=== PATIENT | male | born 1955 | race Caucasian/White ===

== ENCOUNTER 2019-12-03 10:49 | Outpatient (CLI) | payer OTHER, SELFPAY ==
--- NOTE | ~2019-12-03 | XR_ITS ---
EXAMINATION: XR hand BI arthritis min 3V DATE: 12/03/2019 11:06 INDICATION: Bilateral primary osteoarthritis of first carpometacarpal joints. TECHNIQUE: 4 views of right hand and 4 views of left hand on a total of 7 radiographs were obtained. COMPARISON: None. FINDINGS: RIGHT HAND: Bone alignment is normal. No fracture. There is mild osteoarthritis of triscaphe joint, m oderate osteoarthritis of first carpometacarpal joint, and mild osteoarthritis of first and second me tacarpophalangeal joints and most of the interphalangeal joints. LEFT HAND: Bone alignment is normal. No fracture. There is moderate osteoarthritis of first carpometa carpal joint and mild osteoarthritis of second metacarpophalangeal joint and second, third, and fifth distal interphalangeal joints. IMPRESSION: 1. Polyarticular osteoarthritis. Reviewed, dictated and finalized at location A.
== END 2019-12-03 10:50 | disposition home or self-care (01) ==
PROVIDERS: PCP Internal Medicine; Visit Provider Internal Medicine
DX: M18.0 Bilateral primary osteoarthritis of first carpometacarpal joints (principal); M19.041 Primary osteoarthritis, right hand; M19.042 Primary osteoarthritis, left hand
CPT/HCPCS: 73130

== ENCOUNTER → 2020-10-23 09:24 | Outpatient (CLI) | payer OTHER, SELFPAY ==
[2020-10-23 11:49] LABS: Influenza Control Positive
[2020-10-24 21:01] LABS: SARS-CoV-2 RNA PCR Negative
== END ==
PROVIDERS: PCP Internal Medicine; Visit Provider Nurse Practitioner
DX: J32.9 Chronic sinusitis, unspecified (principal); Z20.822 Contact with and (suspected) exposure to COVID-19
CPT/HCPCS: 87804; C9803; U0003; U0005

== ENCOUNTER 2023-05-19 17:10 | Emergency (ER) | payer OTHER, SELFPAY ==
[2023-05-19 17:30] VITALS: BP 155/93; PULSE 92; RESP 18; TEMP 36.8; O2SAT 94
--- NOTE | 2023-05-19 17:47 | ED.URI ---
HPI - URI/Sore Throat General Chief Complaint: Upper Respiratory Infection Stated Complaint: Chest Congestion Source: patient and RN notes reviewed History of Present Illness HPI Narrative: 68 yo M presents to urgent care with complaints of cough and congestion x 8 days. Pt states his O2 SAT 1 week ago was in the 80's. Pt denies any fevers, chills, chest pain, SOB, N/V/D, ear pain, or sore throat. Pt called and his MD and was told to come here to be seen. Related Data Home Medications Medication Instructions Recorded Confirmed cholecalciferol (vitamin D3) 125 5,000 unit PO DAILY 05/17/19 05/19/23 mcg (5,000 unit) capsule multivitamin,[id number] 1 tablet PO DAILY 11/29/19 05/19/23 (Complete Multivitamin tablet) Allergies Allergy/AdvReac Type Severity Reaction Status Date / Time No Known Allergies Allergy Verified 05/19/23 17:50 Review of Systems Review of Systems: Pertinent positives and pertinent negatives per HPI. [facility] Past Medical History Medical History Depression Elevated PSA Elevated PSA measurement Encounter for monitoring testosterone replacement therapy Erectile dysfunction Essential hypertension Hypogonadism in male Morbid obesity due to excess calories Morbid obesity due to excess calories Obesity Osteoarthritis of thumbs, bilateral Surgical History Surgical History History of arthroscopy of knee 01/15/2021 Family History Family History Father Heart disease CAD Diabetes mellitus Sibling Acute myocardial infarction Pacemaker Social History Social History Smoking status: Never smoker Alcohol intake: current Alcohol use details: Pt drinks socially. Lack of Transportation: No Lack of Food: Never True Current Housing: I Have Housing Concerned About Future Housing: No Difficulty Paying Gas/Electric Bills: No Difficulty Paying for Meds: No Currently Unemployed: No Education: Trade/Vocational Certificate Difficulty w/ Childcare or Family Care: No Comments At the time of my signature, I reviewed and agree with the nursing past medical, surgical, social, and family history. There is no relevant family history pertinent to the patient complaint. Exam Narrative: GENERAL: This is a well-nourished, well-developed patient, in no apparent distress. HEAD: normocephalic, atraumatic. EYES: Sclera clear/white. Vision is grossly intact. EARS: External ears normal, auditory canals clear and without drainage, TMs normal without perforation. Hearing grossly intact. NOSE: External nose normal with no obvious nasal discharge. + congestion THROAT: Mucous membranes moist, posterior pharynx clear. NECK: Neck supple, non-tender without lymphadenopathy, masses or thyromegaly. CARDIOVASCULAR: Regular rate and rhythm without murmurs, gallops, or rubs. RESPIRATORY: Clear to auscultation. Breath sounds equal bilaterally. No wheezes, rales, or rhonchi. SKIN: warm, intact with no suspicious lesions or rash, good texture and turgor. NEURO: awake, alert, and oriented to person, place and time. There were no obvious focal neurologic abnormalities. Course Course Level of Care: Express Care Visit Vital Signs Vital signs: Vital Signs Temperature 98.3 F 05/19/23 17:30 Pulse Rate 92 05/19/23 17:30 Respiratory Rate 18 05/19/23 17:30 Blood Pressure 155/93 H 05/19/23 17:30 Pulse Oximetry 94 05/19/23 17:30 Oxygen Delivery Room Air 05/19/23 17:30 Temperature 98.3 F 05/19/23 17:30 Pulse Rate 92 05/19/23 17:30 Respiratory Rate 18 05/19/23 17:30 Blood Pressure 155/93 H 05/19/23 17:30 Pulse Oximetry 94 05/19/23 17:30 Oxygen Delivery Room Air 05/19/23 17:30 Reviewed MDM - URI/Sore Throat MDM Narrative
== END 2023-05-19 18:08 | disposition home or self-care (01) ==
PROVIDERS: Emergency Provider Nurse Practitioner Family; PCP Internal Medicine
DX: J32.9 Chronic sinusitis, unspecified (principal); I10 Essential (primary) hypertension; E66.01 Morbid (severe) obesity due to excess calories; Z68.41 Body mass index [BMI] 40.0-44.9, adult
CPT/HCPCS: 99213; G0463

== ENCOUNTER 2023-11-15 08:21 | Outpatient (CLI) | payer OTHER, SELFPAY ==
--- NOTE | ~2023-11-15 | CT_ITS ---
EXAMINATION: CT sinus wo con DATE: 11/15/2023 08:36 INDICATION: Chronic sinusitis TECHNIQUE: Computed tomography (CT) of the paranasal sinuses was performed without intravenous contra st. Coronal reconstructions were obtained. Iterative reconstruction technique was employed. The dose- length product was 410.46 mGy-cm. COMPARISON: None FINDINGS: Minimal mucosal thickening at the floor of the left maxillary sinus. Remainder of the paranasal sinus es are clear. The bilateral ostiomeatal units are patent. Nasal septum is midline. Changes of right i ntraocular lens replacement. Orbits are otherwise normal. Status post left mastoidectomy. Right masto id air cells and middle ear cavity are normal. There are several dental restorations. There are also periapical lucencies at normally a few of the teeth that the maxilla. IMPRESSION: 1. Minimal mucosal thickening at the floor of the left maxillary sinus. Paranasal sinuses are otherwi se unremarkable. 2. Status post left mastoidectomy and right intraocular lens replacement. Reviewed, dictated and finalized at location B. IMPRESSION: 1. Minimal mucosal thickening at the floor of the left maxillary sinus. Paranas al sinuses are otherwise unremarkable. 2. Status post left mastoidectomy and right intraocular lens replacement.
== END 2023-11-15 08:22 ==
PROVIDERS: PCP Nurse Practitioner; Visit Provider Otolaryngology
DX: J32.9 Chronic sinusitis, unspecified (principal)
CPT/HCPCS: 70486

== ENCOUNTER 2024-01-04 14:13 | Outpatient (CLI) | payer OTHER, SELFPAY ==
--- NOTE | 2024-01-04 14:27 | ECG_ITS ---
Test Date: 2024-01-04 14:39:08 Measurements Intervals [place] Rate: 80 P: 55 WA: 149 QRS: 56 QRSD: 101 T: 59 QT: 344 QTc: 398 Interpretive Statements SINUS RHYTHM NORMAL ECG No previous ECG available for comparison Electronically Signed On 01-04-2024 15:05:11 CDT by Mario Lawton D.O.
[2024-01-04 15:35] LABS: Anion Gap 9 mmol/L (4-12); Blood Urea Nitrogen 21 mg/dL (9-20); Calcium 8.9 mg/dL (8.4-10.2); Carbon Dioxide 26 mmol/L (22-30); Chloride 104 mmol/L (98-107); Estimated Glomerular Filt Rate > 60; Glucose 89 mg/dL (65-110); Potassium 4.1 mmol/L (3.4-5.0); Sodium 139 mmol/L (137-145)
== END 2024-01-04 14:14 | disposition home or self-care (01) ==
LOC: ANHCARD 14:15
PROVIDERS: PCP Internal Medicine; Visit Provider Anesthesiology
DX: Z01.818 Encounter for other preprocedural examination (principal); I10 Essential (primary) hypertension; Z51.81 Encounter for therapeutic drug level monitoring
CPT/HCPCS: 36415; 80048; 93005

== ENCOUNTER 2024-01-27 15:42 | Emergency (ER) | payer OTHER, SELFPAY ==
[2024-01-27 15:45] VITALS: BP 130/77; PULSE 83; RESP 18; TEMP 36.6; O2SAT 97
--- NOTE | 2024-01-27 16:18 | ED.URI ---
HPI - URI/Sore Throat General Chief Complaint: Upper Respiratory Infection Stated Complaint: poss strep throat Time Seen by Provider: 01/27/24 16:19 Source: patient, RN notes reviewed and old records reviewed Mode of arrival: ambulatory Limitations: no limitations History of Present Illness HPI Narrative: 68-year-old presents to the [facility] with concerns for strep throat. Patient has a history of chronic sinusitis. Symptoms started a week to 10 days ago. Has been taking Mucinex. States he uses both Astelin and Flonase daily at request of his ENT doctor. He recently had sinus surgery canceled. Has an appointment with Dr. Brown on the 19 of February for a new ENT Patient states that when he lays down at night all of his sinuses strain into his throat and causes him to cough. Denies fevers. Reports negative COVID test at home a couple of days ago Onset (ago): day(s) (7-10) Treatments prior to arrival: cold medicine Related Data Home Medications Medication Instructions Recorded Confirmed cholecalciferol (vitamin D3) 125 5,000 unit PO DAILY 05/17/19 01/27/24 mcg (5,000 unit) capsule multivitamin,[id number] 1 tablet PO DAILY 11/29/19 01/27/24 (Complete Multivitamin tablet) finasteride 5 mg tablet (Proscar) 5 mg PO DAILY 09/01/23 01/27/24 tamsulosin 0.4 mg capsule (Flomax) 0.4 mg PO BID 09/01/23 01/27/24 tadalafil 10 mg tablet (Cialis) 10 mg PO DAILY 11/02/23 01/27/24 ibuprofen 200 mg capsule 800 mg PO Q6H PRN Pain 01/03/24 01/27/24 oxybutynin chloride 10 mg 10 mg PO DAILY 01/03/24 01/27/24 tablet,extended release 24 hr Allergies Allergy/AdvReac Type Severity Reaction Status Date / Time No Known Allergies Allergy Verified 01/03/24 16:01 Review of Systems Review of Systems: All systems reviewed & are unremarkable except as noted in HPI and below Constitutional: Constitutional: Reports no additional constitutional complaints Eyes: Eyes: Reports no additional eye complaints ENT: Reports as per HPI Cardiovascular: Cardiovascular: Reports no additional cardiovascular complaints, Denies chest pain and Denies dyspnea Respiratory: Respiratory: Reports no additional respiratory complaints, Denies chest congestion, Denies cough and Denies dyspnea Gastrointestinal: Gastrointestinal: Reports no additional gastrointestinal complaints, Denies abdominal pain, Denies nausea and Denies vomiting Musculoskeletal: Musculoskeletal: Reports no additional musculoskeletal complaints Integumentary/Breasts: Skin/Breast: Reports system reviewed and no additional complaints, except as docu Neurologic: Reports system reviewed and no additional complaints, except as documented Psychiatric: Psychiatric: Reports no additional psychiatric complaints Allergic/Immunologic: Allergic/Immunologic: Reports no additional allergic/immunologic complaints PMFSH Past Medical History Medical History Depression Elevated PSA Elevated PSA measurement Encounter for monitoring testosterone replacement therapy Erectile dysfunction Essential hypertension Hypogonadism in male Morbid obesity due to excess calories Morbid obesity due to excess calories Obesity Osteoarthritis of thumbs, bilateral Surgical History Surgical History History of arthroscopy of knee 01/15/2021 Family History Family History Father Heart disease CAD Diabetes mellitus Sibling Acute myocardial infarction Pacemaker Social History Social History Smoking status: Never smoker Alcohol intake: current Drinks per week: 1 Alcohol use details: Pt drinks socially. Lack of Transportation: No Lack of Food: Never True Current Housing: I Have Housing Concerned About Future Housing: No Difficulty Paying Gas/Electric Bills:
[2024-01-27 16:22] LABS: EDSTREPNEGPOS1 Presumptive Negative
== END 2024-01-27 16:33 | disposition home or self-care (01) ==
PROVIDERS: Emergency Provider Nurse Practitioner; PCP Internal Medicine
DX: J32.9 Chronic sinusitis, unspecified (principal); I10 Essential (primary) hypertension; E66.01 Morbid (severe) obesity due to excess calories; Z68.41 Body mass index [BMI] 40.0-44.9, adult
CPT/HCPCS: 87081; 87880; 99213; G0463

== ENCOUNTER 2024-03-23 09:16 | Emergency (ER) | payer OTHER, SELFPAY ==
--- NOTE | ~2024-03-23 | XR_ITS ---
EXAMINATION: XR foot LT min 3V DATE: 03/23/2024 09:44 INDICATION: Left foot pain. TECHNIQUE: 4 views of left foot were obtained. COMPARISON: None. FINDINGS: Alignment is normal. No fracture. There is mild osteoarthritis of first metatarsophalangeal joint and some of the interphalangeal joints. There is mild to moderate midfoot osteoarthritis. Ther e are enthesophytes at the posterior and plantar aspects of calcaneal tuberosity. IMPRESSION: 1. Polyarticular osteoarthritis. Reviewed, dictated and finalized at location A.
[2024-03-23 09:33] VITALS: BP 152/78; PULSE 84; RESP 16; TEMP 37.2; O2SAT 98
--- NOTE | 2024-03-23 09:36 | ED.LOWEXIN ---
HPI - Extremity Injury (Lower) General Chief Complaint: Extremity Injury, Lower Stated Complaint: Left Foot Injury Time Seen by Provider: 03/23/24 10:01 Source: patient and RN notes reviewed Mode of arrival: ambulatory Limitations: no limitations History of Present Illness HPI Narrative: 69-year-old male presents with concern for left foot pain. Reports 1 week ago he slipped off a truck at work and hit the ball of his foot hard on the pavement. Reports pain reports he had some bruising at the base of his digits which is resolving. Reports he has taken ibuprofen once a day without much relief. Reports wearing his shoes helps his pain. MD complaint: foot injury Related Data Home Medications Medication Instructions Recorded Confirmed cholecalciferol (vitamin D3) 125 5,000 unit PO DAILY 05/17/19 03/02/24 mcg (5,000 unit) capsule multivitamin,wi-uzvr-hysotmwi 1 tablet PO DAILY 11/29/19 03/02/24 (Complete Multivitamin tablet) finasteride 5 mg tablet (Proscar) 5 mg PO DAILY 09/01/23 03/02/24 tamsulosin 0.4 mg capsule (Flomax) 0.4 mg PO BID 09/01/23 03/02/24 tadalafil 10 mg tablet (Cialis) 10 mg PO DAILY 11/02/23 03/02/24 ibuprofen 200 mg capsule 800 mg PO Q6H PRN Pain 01/03/24 03/02/24 oxybutynin chloride 10 mg 10 mg PO DAILY 01/03/24 03/02/24 tablet,extended release 24 hr Allergies Allergy/AdvReac Type Severity Reaction Status Date / Time No Known Allergies Allergy Verified 03/02/24 08:09 Review of Systems Review of Systems: CONSTITUTIONAL: Denies malaise, chills, sweats, or fever. SKIN: Denies rash or itching, open skin, laceration, abrasion, redness, warmth, swelling. MUSCULOSKELETAL: Reports left foot pain NEUROLOGIC: Denies numbness, weakness All systems reviewed & are unremarkable except as noted in HPI and below PMFSH Past Medical History Medical History Depression Elevated PSA Elevated PSA measurement Encounter for monitoring testosterone replacement therapy Erectile dysfunction Essential hypertension Hypogonadism in male Morbid obesity due to excess calories Morbid obesity due to excess calories Obesity Osteoarthritis of thumbs, bilateral Surgical History Surgical History History of arthroscopy of knee 01/15/2021 Family History Family History Father Heart disease CAD Diabetes mellitus Sibling Acute myocardial infarction Pacemaker Social History Social History Smoking status: Never smoker Alcohol intake: current Drinks per week: 1 Alcohol use details: Pt drinks socially. Lack of Transportation: No Lack of Food: Never True Current Housing: I Have Housing Concerned About Future Housing: No Difficulty Paying Gas/Electric Bills: No Difficulty Paying for Meds: No Currently Unemployed: No Education: Trade/Vocational Certificate Difficulty w/ Childcare or Family Care: No Living arrangements: with family Additional living arrangements comments: S.O. Spiritual care concerns: No Comments At time of signature, agree with nursing past medical, surgical, social and family history. There is no relevant family history pertinent to the presenting complaint Exam Narrative: GENERAL: Well-appearing, well-nourished, and in no acute distress. HEAD: Normocephalic, atraumatic. EYES: PERRLA, conjunctivae clear NECK: Supple. CHEST: Speaks in full sentences. No respiratory distress. HEART: Regular rate and rhythm. Normal and equal peripheral pulses. EXTREMITIES: Left foot, digits have grossly normal strength and sensation, grossly normal range of motion. No edema or ecchymosis. Normal sensation with sensitivity to light touch and pain. No open wounds, no skin tenting, no devitalized tissue or atrophy, no trophic changes, no obvious deformity, al
== END 2024-03-23 10:15 | disposition home or self-care (01) ==
PROVIDERS: Emergency Provider Nurse Practitioner; PCP Internal Medicine
DX: M79.672 Pain in left foot (principal); I10 Essential (primary) hypertension; E66.01 Morbid (severe) obesity due to excess calories; M19.042 Primary osteoarthritis, left hand; M19.041 Primary osteoarthritis, right hand
CPT/HCPCS: 73630; 99213; G0463

== ENCOUNTER 2024-04-02 14:52 | Outpatient (CLI) | payer OTHER, SELFPAY ==
--- NOTE | ~2024-04-02 | XR_ITS ---
Left foot Technique: AP, oblique, and lateral views were obtained. Clinical History: Pain COMPARISON: 03/23/2024 Findings: No acute fracture or dislocation is seen. Osseous alignment is anatomic. There are mild deg enerative changes at the interphalangeal joints. Plantar calcaneal spur present. Soft tissues are unr emarkable. Impression: Degenerative changes, as above. Reviewed, dictated and finalized at location M. Impression: Degenerative changes, as above.
== END 2024-04-02 14:53 | disposition home or self-care (01) ==
LOC: ANHBWCIMG 14:53
PROVIDERS: PCP Internal Medicine; Visit Provider Orthopaedic Surgery
DX: M19.072 Primary osteoarthritis, left ankle and foot (principal)
CPT/HCPCS: 73630

== ENCOUNTER 2024-08-03 14:13 | Outpatient (CLI) | payer OTHER, SELFPAY ==
--- NOTE | ~2024-08-03 | MR_ITS ---
EXAMINATION: MR knee RT wo con DATE: 08/03/2024 14:49 INDICATION: Right knee pain. TECHNIQUE: Magnetic resonance imaging (MRI) of the right knee was performed without intravenous contr ast. Sequences included axial PD-weighted FS FSE, coronal PD-weighted FSE and PD-weighted FS FSE, sag ittal PD-weighted FSE, and sagittal T2-weighted FS FSE. COMPARISON: None. FINDINGS: Medial compartment: There is a complex tear involving body and posterior root of medial meniscus. There is shallow partia l-thickness cartilage loss of tibial condyle. There is an osteochondral lesion of femoral condyle inv olving the central articular surface with unstable in situ fragment with fluid at its deep margin and moderate subchondral edema-like marrow signal intensity. There is deep partial-thickness cartilage l oss of femoral condyle involving the lateral articular surface. There are tiny osteophytes. Lateral compartment: Lateral meniscus is normal. Lateral compartment cartilage is normal. There are tiny osteophytes. Patellofemoral compartment: There is deep partial-thickness cartilage loss of patellar medial and lateral facets. There is cartil age surface irregularity of trochlea. Osteophytes are noted. Ligaments and tendons: Anterior and posterior cruciate ligaments demonstrate thickening and increased signal intensity. Ther e are changes of prior sprains of medial collateral ligament and fibular collateral ligament characte rized by thickening and increased signal intensity proximally. There is mild patellar tendinopathy. Fluid: There is a small knee joint effusion. There is a 15 mm ganglion cyst posterior to femoral metaphysis. There is moderate prepatellar and superficial infrapatellar bursitis. IMPRESSION: 1. Unstable osteochondral lesion of medial femoral condyle. 2. Moderate chondrosis of medial and patellofemoral compartments. 3. Tear of medial meniscus. 4. Small knee joint effusion. 5. Thickening and increased signal involving anterior and posterior cruciate ligaments, consistent wi th mucoid degeneration versus partial tears. Reviewed, dictated and finalized at location A. C2 TACTICAL ANALYSIS TECHNICIAN IMPRESSION: 1. Unstable osteochondral lesion of medial femoral condyle. 2. Moderate chondrosis of medial and patellofemoral compartments. 3. Tear of medial meniscus. 4. Small knee joint effusion. 5. Thickening and increased signal involving anterior and posterior cruciate li gaments, consistent with mucoid degeneration versus partial tears.
== END 2024-08-03 14:14 | disposition home or self-care (01) ==
LOC: GOSHIMG 14:14
PROVIDERS: PCP Internal Medicine; Visit Provider Orthopaedic Surgery
DX: M93.261 Osteochondritis dissecans, right knee (principal); M22.41 Chondromalacia patellae, right knee; M25.461 Effusion, right knee; S83.241A Other tear of medial meniscus, current injury, right knee, initial encounter; S83.501A Sprain of unspecified cruciate ligament of right knee, initial encounter; X58.XXXA Exposure to other specified factors, initial encounter
CPT/HCPCS: 73721

== ENCOUNTER 2024-08-13 13:03 | Outpatient (CLI) | payer OTHER, SELFPAY ==
--- NOTE | ~2024-08-13 | XR_ITS ---
Right Knee Technique: AP, lateral, and sunrise views were obtained. Clinical History: Pain Findings: No fracture or dislocation is seen. Osseous alignment is anatomic. Joint spaces are preserv ed, with minimal degenerative spurring present. Soft tissues are unremarkable. No joint effusion is s een. Impression: Minimal degenerative spurring. Reviewed, dictated and finalized at location . DING ENERGY CONSULTANT Impression: Minimal degenerative spurring.
== END 2024-08-13 13:04 | disposition home or self-care (01) ==
PROVIDERS: PCP Internal Medicine; Visit Provider Orthopaedic Surgery
DX: M25.561 Pain in right knee (principal)
CPT/HCPCS: 73564

== ENCOUNTER 2025-04-30 06:43 | Outpatient (CLI) | payer MEDICARE, SELFPAY ==
--- NOTE | ~2025-04-30 | CT_ITS ---
EXAMINATION: CT sinus wo con DATE: 04/30/2025 07:10 INDICATION: Acute sinusitis, unspecified TECHNIQUE: Computed tomography (CT) of the paranasal sinuses was performed without intravenous contrast. The dose-length product was 286.08 mGy-cm. COMPARISON: 11/15/2023 FINDINGS: Paranasal sinuses are clear. Right mastoid air cells are clear. Partial opacification of the left mastoid air cells. Status post left partial mastoidectomy and right intraocular lens replacement. Bilateral ostiomeatal complexes are patent. Stable metallic density extending to the temporal bone. Correlate clinically. IMPRESSION: 1. Partial opacification of the left mastoid air cells. 2. Status post left partial mastoidectomy. 3. The paranasal sinuses are clear. Reviewed, dictated and finalized at location Q.
--- OUTSIDE RECORDS SUMMARY | 2025-04-30 06:52 | XMS_ITS | Encounter Summary ---
Author Organization [facility] Address [address] [place] [address] Phone Care Team Providers Care Barbering Teacher Name Role Phone Robert Escobar DO Primary Care Provider Encounter Details Date Type Department Care Team (Late st Contact Info) Description 04/18/2025 Results Follow-Up [place] [facility] ([facility]) - [facility] [place] [facility] [address] [facility] 11th [place] [address] [place] [address] Annamarie Golden MD [address] [facility] [address] [place] [address] URINALYSIS, COMPLETE W/REFLEX TO CULTURE, Microscopic Examination Social History Tobacco Use Types Packs/Day Years Used Date Smoking Tobacco: Never Smokeless Tobacco: Never AUDIT-C Answer Date Recorded Q1: How often do you have a drink containing alc ohol? 2-4 times a month 03/04/2021 Q2: How many drinks containi ng alcohol do you have on a typical day when you are drinking? 1 or 2 03/04/2021 Q3: How often do you have si x or more drinks on one occasion? 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
--- OUTSIDE RECORDS SUMMARY | 2025-04-30 06:53 | XMS_ITS | Clinical Summary ---
Author Organization [facility] Address [address] [place] [id number] Care Team Providers Care Nursing Clerk Name Role Phone Unavailable Primary Care Provider Unavailabl e Social History Tobacco Use Types Packs/Day Years Used Date Smoking Tobacco: Never Assessed Sex and Gender Information Value Date Recorded Sex Assigned at Not on file Legal Sex Male 10:13 AM CDT Gender Identity Not on file Sexual Orientation Not on file Plan of Treatment Health Maintenance Due Date Last Done Comments Colorectal Cancer Screening Colonoscopy (10 Years) 1957 Hepatitis C 1975 DTaP, Tdap and Td Vaccines ( 1 - Tdap) 1976 Pneumococcal Vaccine: 50+ Ye ars (1 of 1 - PCV) 2007 Zoster Vaccines (1 of 2) 2007 COVID-19 Vaccine ( - 2024-2 6 season) 2025 Influenza Adult (#1) 2025 RSV Immunization or 60+ Years (1 - 1-dose 75+ series) 2032 Hepatitis A Vaccines Aged Out No long er eligible based on patient's age to complete this topic Meningococcal B Vaccine Aged Out No l onger eligible based on patient's age to complete this topic Meningococcal Vaccine Aged Out No babs jose eligible based on patient's age to complete this topic RSV Immunizations Under 20 Months Aged Out No longer eligible based on patient's age to complete this topic Insurance [facility]
--- OUTSIDE RECORDS SUMMARY | 2025-04-30 06:53 | XMS_ITS | Data Portability ---
Author Organization [facility] Address [address] [facility] [address] [place] [address] Care Team Providers Care College Sports Assistant Name Role Phone CHAITANYA GUSTAFSON Primary Care Provider WILL CANSECO Referring Provider Assessment No assessment recorded. Plan of Treatment Reminders Order Date Submit Date Provider Last Modified By Organization Details Last Modified Time Details Appointments None record ed. Lab None record ed. Referral None record ed. Procedures None record ed. Surgeries None record ed. Imaging None record ed. Medication Orders None record ed. Patient TargetsNo targets recorded. Patient InstructionsNo instructions recorded. Reason for Referral None Reported. Procedures Surgical History Date Name Laterality Status Provider Name and Address Organization Details Recorded Time 07/01/2017 Sleep Study completed Will Pearce [facility] 07/03/20 17 12:07:36 Imaging Results None recorded. Procedure Notes None recorded. Medical Equipment None Reported. Medications Name Sig Start Date Stop Date Status Note LastModified by Organization Details LastModified Time prednisone 10 mg tablet active Not Available Not Available Not Available cetirizine 10 mg tablet active Not Available Not Available Not Available ofloxacin 0.3 % eye drops active Not Available Not Available No t Available citalopram 10 mg tablet active Not Available Not Available Not Available clarithromycin 500 mg tablet active Not Available Not Availabl e Not Available prednisone 20 mg tablet active Not Available Not Available Not Available triamterene 37.5 mg-hydrochloroth iazide 25 mg capsule active Not Available Not Available Not Available amitriptyline 25 mg tablet active Not Available Not Available No t Available clarithromycin ER 500 mg tablet,extended release 24 hr active Not Available Not Availabl e Not Available promethazine 25 mg tablet active Not Available Not Available No t Available fluticasone propionate 50 mcg/actuation nasal spray,suspension active Not Available Not Avail able Not Available diazepam 5 mg tablet active Not Available Not Available Not Available amoxicillin 875 mg-potassium clavulanate 125 mg tablet active Not Available Not Available No t Available Vitals Date Recorded Body height Body mass index (BMI) Body weight Provider Name and Address Organization Details Last Updated DateTime 07/01/2017 187.96 cm 40.4 kg/m2 913053.[address] [facility] [place] 07/01/2017 16:15:42 Social History None recorded. Functional Status None recorded. Mental Status None recorded. Family History Nothing Reported. Medical History No medical history recorded. Past Encounters Encounter ID Performer Location Encounter Start Date Encounter Closed Date Diagnosis/Indication Diagnosis SNOMED-CT Code Diagnosis ICD10 Code Diagnosis IMO Codes Diagnosis Note [id number] [facility], [facility] (32) [address] [facility] [address] [place] [address] 07/01/2017 15:27:01 07/03/2017 12:02:13 Obstructive sleep apnea of adult 7848223189 103 G47.33 Health Concerns Section Related Observation LastModified by Organization Detai ls LastModified Time None Recorded Concern Status LastModified by Organization Details LastModified Time None Recorded Advance Directives Directive None Recorded Payers Insurance Date Sequence Insurance Name Policy Number Policy Garcia Covered Member ID Garcia Member ID Guarantor Name 07/08/2017 1 [facility] ([facility]) Aleksey Clark [id number] Aleksey Clark Notes Date Note Type Note Provider Name and Address Organization Details Recorded Time 7 text/html HST SetupReported by PatientEquipment InstructionsFor hst set up, patient reportsdemonstrated to patient how to set up home sleep test device. the patient was able to return demonstration with out difficulty.andthe patient is returning the device the following morning..ROS as noted in the HPI Gerard Wood MD [facility] [id number] [address] [facility] [address], [place], [address], [facility] [place] 07/03/2017 13:55:11
--- OUTSIDE RECORDS SUMMARY | 2025-04-30 06:54 | XMS_ITS | Clinical Summary ---
Author Organization [facility] Address [address] [place] [address] Care Team Providers Care Waste Salvager Name Role Phone [facility], External Provider Primary Care Provider U navailable Allergies No known active allergies Medications diazePAM (VALIUM) 5 mg tablet Take 5 mg by mouth every 8 hours as needed for Anxiety. Active meclizine (ANTIVERT) 25 mg tablet Take 25 mg by mouth 3 times daily as needed for Dizziness. Active amitriptyline (ELAVIL) 25 mg tablet Take 25 mg by mouth daily at bedtime. Active cetirizine (ZyrTEC) 10 mg tablet Take 5 mg by mouth daily . Active citalopram (CeleXA) 10 mg tablet Take 10 mg by mouth daily. Active promethazine (PHENERGAN) 25 mg tablet Take 25 mg by mouth every 6 hours as needed for Nausea/Emesis. Active fluticasone (XHANCE) 93 mcg/actuation Aerosol Breath Activated Administer in each nostril 1 SPRAY BID . Active multivitamin (DAILY-GALDINO) tablet Take 1 Tablet by mouth daily. Active calcium carbonate (TUMS ORAL) Take by mouth TAKES 2 TABS PRN . Active sertraline HCl (SERTRALINE ORAL) Take by mouth. Activ e amlodipine besylate (AMLODIPINE ORAL) Take by mouth. Activ e HYDROCHLOROTHI AZIDE ORAL Take by mouth. Acti ve losartan potassium (LOSARTAN ORAL) Take by mouth. Activ e TESTOSTERONE CYPIONATE IM Inject by intramuscular injection every 7 days. Active finasteride (PROSCAR) 5 mg tablet Take 5 mg by mouth daily. Active oxyBUTYnin (DITROPAN XL) 15 mg Extended Release 24 hour tablet Take 15 mg by mouth daily. Active tadalafil (CIALIS) 5 mg tablet Take 5 mg by mouth 1 time daily as needed for Erectile Dysfunction. Active tamsulosin (FLOMAX) 0.4 mg capsule Take 0.4 mg by mouth daily. Active cholecalcifero l, vitamin D3, (VITAMIN D3 ORAL) Take by mouth. Activ e rosuvastatin calcium (ROSUVASTATIN ORAL) Take by mouth. Activ e Active Problems No known active problems Encounters Date Type Department Care Team Description 03/19/2025 External Device Data ST[facility] ABSTRACTION Provider, Abstract from Last 3 Months Social History Tobacco Use Types Packs/Day Years Used Date Smoking Tobacco: Never Smokeless Tobacco: Never Alcohol Use Standard Drinks/Week Comments Yes 0 (1 standard drink = 0.6 oz pur e alcohol) socially Food Insecurity Answer Date Recorded Patient needs follow up regardin 11/03/2024 Transportation Needs Answer Date Record ed Patient needs follow up regardin 11/03/2024 Housing Stability Answer Date Recorded Social/Environmental Concerns No concerns Utility Needs Answer Date Recorded Patient needs follow up regardin 11/03/2024 Sex and Gender Information Value Date Recorded Sex Assigned at Not on file Legal Sex Male 9:13 AM CDT Gender Identity Not on file Sexual Orientation Not on file Last Filed Vital Signs Vital Sign Reading Time Taken Comments Blood Pressure 156/92 05/09/2018 1:20 PM SQUEEZER OPERATOR Pulse 75 05/09/2018 1:20 PM SQUEEZER OPERATOR Temperature 36.1 C (97 F) 05/09/2018 1:20 PM SQUEEZER OPERATOR Respiratory Rate 16 05/09/2018 1:20 PM SQUEEZER OPERATOR Oxygen Saturation 94% 05/09/2018 1:20 PM SQUEEZER OPERATOR Inhaled Oxygen Concentration - - Weight 153.3 kg (338 lb) 09/26/2024 4:18 PM CDT Height 188 cm (6' 2) 09/26/2024 4:18 PM CDT Body Mass Index 43.4 09/26/2024 4:18 PM CDT Plan of Treatment Health Maintenance Due Date Last Done Comments Pre-Diabetes and Diabetes Screening 1955 DTAP/TDAP/TD VACCINES (1 - Tdap) 1976 COLORECTAL SCREENING 2002 Colorectal Cancer Screening 2002 FIT-DNA Q 3 years 2002 FIT/FOBT Q 1 year 2002 Flex Sig/CT Colonography Q 5 years 2002 PNEUMOCOCCAL VACCINE 50+ YEARS (1 of 1 - PCV) 03/15/20 07 RSV VACCINE (60+ or ) (1 - Risk 50-74 years 1-dose series) 2007 ZOSTER VACCINE (1 of 2) 2007 INFLUENZA VACCINE (#1) 2025 Medical Devices Implanted Type Area Cleat Thrower Device Identifier Shelf Expiration Date Model / Serial / Lot Imp Ponto Bhx 4mm Abtmnt-14mm [id number] - [id number] Implanted:Qty : 1 on 05/09/2018 by Moreno Brown MD at [facility] Ear Left: Ear OTICON FARSHAD 07/22/2022 [id number] / / [id number] Description:requisition # [id number] Hemostatic Gelfoam [facility] [id number] - Csc - [id number] Implanted:Qty : 1 on 05/07/2016 by Moreno Brown MD at [facility] Hemostatic Left: Ear PFIZER- PHARM [id number] 08/31/2018 [id number] / / [id number] Hemostatic Gelfoam [facility] [id number] - Csc - [id number] Implanted:Qty : 1 on 12/27/2016 by Moreno Brown MD at [facility] Hemostatic Left: Ear PFIZER- PHARM [id number] 07/03/2017 [id number] / / [id number] Processor Ponto 3 Superpower Implanted:Qty : 1 on 05/09/2018 by Moreno Brown MD at [facility] Integral Left: Ear OTICON FARSHAD / [id number] / Description:REQUISITION # [id number] Right Eye Cataract Excision With Iol Silicone Sheeting Implanted:Qty : 1 on 05/07/2016 by Moreno Brown MD at [facility] Left: Ear INVOTEC INT 12/02/2019 [id number] / / [id number] Description:Medical Grade Cu stom Cut Silicone Sheeting Explanted Type Area Cleat Thrower Device Identifier Shelf Expiration Date Model / Serial / Lot Shunt Carlos Endolymph [id number] - [id number] Implanted:Qty : 1 Explanted:Qty : 1 on 05/07/2016 by Moreno Brown MD at [facility] Shunt Left: Ear [employer] [id number] 12/16/2021 [id number] / / [id number] Endolymph Shunt Explanted:Qty : 1 on 05/07/2016 by Moreno Brown MD at [facility] Shunt Left: Ear N/A / / N/A Insurance BCBS BLUE ACCESS/TRUE BLUE PPO RX [facility] [employer] Advance Directives For more information, please contact: [phone] * Full Code (Latest Code Status on File) Date Activated Date Inactivated Comments 05/09/2018 8:14 AM 05/09/2018 3:46 PM * Full Code Date Activated Date Inactivated Comments 12/27/2016 10:44 AM 12/28/2016 12:29 PM * Full Code Date Activated Date Inactivated Comments 12/27/2016 9:46 AM 12/27/2016 10:44 AM * Full Code Date Activated Date Inactivated Comments 05/07/2016 6:33 AM 05/07/2016 5:23 PM * Full Code Date Activated Date Inactivated Comments 05/07/2016 6:28 AM 05/07/2016 6:33 AM Care Teams Waste Salvager Relationship Specialty Start Date End Date [facility], External Provider [address] [place] [address] PCP - General 04/28/16
--- OUTSIDE RECORDS SUMMARY | 2025-04-30 06:54 | XMS_ITS | Clinical Summary ---
Author Organization [facility] Address [address] [place] [address] Phone Care Team Providers Care Float Builder Name Role Phone Robert Escobarian Primary Care Provider Social History Tobacco Use Types Packs/Day Years Used Date Smoking Tobacco: Never Assessed Sex and Gender Information Value Date Recorded Sex Assigned at Not on file Legal Sex Male 8:49 PM CDT Gender Identity Not on file Sexual Orientation Not on file Plan of Treatment Health Maintenance Due Date Last Done Comments Hepatitis C Virus (HCV) Screening 1955 Cologuard 2002 Colonoscopy 2002 Colorectal Cancer Screening 2002 Immunochemical Fecal Occult Blood 2002 Pneumococcal Immunization (5 0+ years) (1 of 1 - PCV) 2007 Zoster Immunization (1 of 2) 2007 Hepatitis B Immunization (2 of 3 - 19+ 3-dose series) 01/28/2010 12/31/2009 Influenza Immunization (#1) 2025 05/15/2021 SARS-COV-2 Immunization ( season) 2025 05/15/2021, 09/25/2020, 09/04/2020 Respiratory Syncytial Virus (RSV) Immunization (Adult) (1 - 1-dose 75+ series) 2032 DTaP/Tdap/Td Immunization Discontinued 2020, 09/22/2009 TdaP Immunization Completed 05/15/2021, 09/22/2009 Human Papillomavirus (HPV) Immunization Aged Out No longer eligible based on patient's age to complete this topic Meningococcal Immunization (ACWY) Aged Out No longer eligible based on patient's age to complete this topic Rotavirus Immunization Aged Out No lo nger eligible based on patient's age to complete this topic Insurance [facility] [address] [place] [place] [id number] [place] [address] Care Teams Float Builder Relationship Specialty Start Date End Date Robert Escobar DO [address] [facility] [place] [address] PCP - General Internal Medicine 10/04/22
--- OUTSIDE RECORDS SUMMARY | 2025-04-30 06:54 | XMS_ITS | Clinical Summary ---
Author Organization [facility] Address [address] [place] [address] Care Team Providers Care Termination Clerk Name Role Phone Robert Escobar DO Primary Care Provider Allergies No known active allergies Medications amLODIPine (NORVASC) 10 mg tabletIndication s:hypertension Take 10 mg by mouth every morning 1 Active fluticasone propionate 93 mcg/actuation aerosol breath activated Administer into affected nostril(s) daily as needed Active hydroCHLOROthiaz cali (HYDRODIURIL) 12.5 mg tablet Take 12.5 mg by mouth every morning 1 Active ibuprofen (ADVIL,MOTRIN) 800 mg tablet Take 800 mg by mouth every 6 (six) hours as needed 1 Active losartan (COZAAR) 100 mg tabletIndication s:hypertension Take 100 mg by mouth every morning 1 Active multivitamin tablet Take 1 tablet by mouth daily Active sertraline (ZOLOFT) 100 mg tablet Take 100 mg by mouth every morning 1 Active testosterone cypionate (DEPO-TESTOTERON E) 100 mg/mL injectionIndicat ions:low testosterone Inject 60 mg into the muscle as instructed every 7 days Active cholecalciferol (VITAMIN D-3) 400 unit capsule Take 400 Units by mouth daily Active tamsulosin (FLOMAX) 0.4 mg extended release capsuleIndicatio ns:Benign prostatic hyperplasia with lower urinary tract symptoms, symptom details unspecified Take 1 capsule (0.4 mg total) by mouth 2 (two) times a day 180 capsule 2 5 025 Active finasteride (PROSCAR) 5 mg tabletIndication s:Benign prostatic hyperplasia with lower urinary tract symptoms, symptom details unspecified Take 1 tablet (5 mg total) by mouth daily 30 tablet 11 5 Active vibegron (Gemtesa) 75 mg tablet Take 75 mg by mouth daily 90 tablet 3 5 026 Active tadalafiL (CIALIS) 5 mg tabletIndication s:Benign prostatic hyperplasia with lower urinary tract symptoms, symptom details unspecified Take 1 tablet (5 mg total) by mouth daily 90 tablet 3 5 026 Active tadalafiL (CIALIS) 5 mg tabletIndication s:Benign prostatic hyperplasia with lower urinary tract symptoms, symptom details unspecified Take 1 tablet (5 mg total) by mouth daily 90 tablet 3 4 025 Discontin ued(Reord er) mirabegron ER (MYRBETRIQ) 25 mg tablet extended release 24 hrIndications:Ur gency of urination Take 1 tablet (25 mg total) by mouth daily 30 tablet 3 5 025 Discontin ued(Alter jean-pierre therapy) Active Problems Problem Noted Date Diagnosed Date Elevated PSA 03/02/2021 Overview (03/02/2021): Added automatically from request for surgery [id number] Encounters Date Type Department Care Team Description 04/18/2025 Results Follow-Up [facility]) - [facility] Urology [address] [facility] 11th [place] [address] Annamarie Golden MD URINALYSIS, COMPLETE W/REFLEX TO CULTURE, Microscopic Examination 04/17/2025 Orders Only [facility]) - [facility] Urology [address] [facility] 11th [place] [address] Annamarie Golden MD 04/17/2025 Orders Only [facility] Surgery [address] [facility] [address] [place] [address] Annamarie Golden MD Hematospermia (Primary Dx) 04/17/2025 Telephone [facility] [address] [facility] [address] [place] [address] Hernandez AidaRIAN 04/05/2025 Results Follow-Up [facility] - [facility] Urology [address] [facility] 11th [place] [address] [place] [address] Annamarie Golden MD PSA screen 04/04/2025 Telephone [facility] Surgery [address] [place] [address] Yana Chase EMT 03/01/2025 Orders Only [facility] Surgery [address] [facility] [address] [place] [address] Annamarie Golden MD Urgency of urination (Primary Dx) 02/27/2025 Telephone [facility] Surgery [address] [place] [address] Shana Minor from Last 3 Months Surgical History Surgery Date Site/Laterality Comments KNEE SURGERY 2017, 01/2021 Bilateral meniscus repair EAR SURGERY 07/04/2015 - 07/03/2016 Left Baha Implant BACK SURGERY 1983, 1994 L5-S1 COLONOSCOPY CATARACT EXTRACTION W/ INTRAOCULAR LENS IMPLANT 07/04/2015 - 07/03/2016 Right Medical History Medical History Date Comments Hypertension Sleep apnea MARY (obstructive sleep apnea) Elevated PSA Depression ED (erectile dysfunction) PONV (postoperative nausea and vomiting) MARY (obstructive sleep apnea) Allergic rhinitis Family History Medical History Relation Name Comments Heart attack Brother late 50s Heart disease Brother s/p stent Heart failure Father Psychosis Father Relation Name Status Comments Brother Alive Father (Age 68) Social History Tobacco Use Types Packs/Day Years [...] on file 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 Gender Identity Not on file Sexual Orientation Not on file Obstetrics History Last Filed Vital Signs Vital Sign Reading Time Taken Comments Blood Pressure 160/60 01/28/2022 11:13 AM CDT Pulse 108 01/28/2022 11:13 AM CDT Temperature 36.7 C (98 F) 01/28/2022 11:13 AM CDT Respiratory Rate 18 01/28/2022 11:13 AM CDT Oxygen Saturation 95% 01/28/2022 11:13 AM CDT Inhaled Oxygen Concentration - - Weight 154.7 kg (341 lb) 01/28/2022 11:13 AM CDT Height 188 cm (6' 2) 01/28/2022 11:13 AM CDT Body Mass Index 43.78 01/28/2022 11:13 AM CDT Plan of Treatment Health Maintenance Due Date Last Done Comments Colon Cancer Screening-Colonoscopy 1955 Depression Screening 1955 Hepatitis C Screening 1955 Pneumococcal vaccine 65+ (1 of 1 - PCV) 2007 Zoster Vaccine (1 of 2) 2007 DTaP/Tdap/Td Vaccine (2 - Td or Tdap) 09/23/2019 09/22/2009 Fall Risk Assessment 03/04/2022 03/04/2021 Well Visit 65+ 2022 Covid-19 Vaccine (3 - 2024-2 6 season) 2025 09/25/2020, 09/04/2020 Influenza Vaccine (#1) 2025 Prostate Cancer Screening-PSA 04/04/2027, 05/09/2024, 05/16/2023, Additional history exists Hepatitis B Screening Completed 12/31/2009 Medical Devices Implanted Type Area Extrusion Machine Operator Device Identifier Shelf Expiration Date Model / Serial / Lot Oticon Bone Anchored Hearing Aid (Ponto) Implanted: by Unknown, Notinfile (Quantity not on file) Other - see comments Ear [facility] PONTO 3 SUPERPOWER / [id number] / [id number] Procedures Procedure Name Priority Date/Time Associated Diagnosis Comments MICROSCOPIC EXAMINATION Routine 04/17/2025 4:03 PM CDT URINALYSIS, COMPLETE W/REFLEX TO CULTURE Routine 04/17/2025 4:03 PM CDT PSA SCREEN Routine 04/04/2025 8:07 AM CDT Elevated PSA from Last 3 Months Results * (ABNORMAL) URINALYSIS, COMPLETE W/REFLEX TO CULTURE (04/17/2025 4:03 PM CDT) Specific Rowe 1.023 1.005 - 1.030 [facility] - 01 pH, ur 6.5 5.0 - 7.5 [facility] - 01 Color, ur Yellow Yellow [facility] - 01 Appearance, ur Clear Clear [facility] - 01 Leukocyte esterase, ur Negative Negative [facility] - 01 Protein, ur Negative Negative/Tra ce [facility] - 01 Glucose, ur Negative Negative [facility] - 01 Ketones, ur Trace(A) Negative [facility] - 01 Blood, ur Negative Negative [facility] - 01 Bilirubin, ur Negative Negative [facility] - 01 Urobilinogen, quant, ur 1.0 0.2 - 1.0 mg/dL [facility] - 01 Nitrites, ur Negative Negative [facility] - 01 Urinalysis, microscopic exam Comment [facility] - 01 Comment:Microscopic follows if indicated. Urinalysis, microscopic exam See below: [facility] - 01 Comment:Microscopic was osman cated and was performed. Urinalysis Reflex Comment [facility] - 01 Comment:This specimen will n ot reflex to a Urine Culture. 04/17/2025 4:03 PM CDT 04/17/2025 Narrative [facility] - 04/18/2025 7:09 AM CDT Performed at: [facility] [id number] Retail Route Supervisor: Tra Victoria PhD, Phone: [phone] us Annamarie Golden MD LAB URINE ORDERABLES Final Resul t [facility] - 01 * Microscopic Examination (04/17/2025 4:03 PM CDT) WBC, ur None seen 0 - 5 /hpf [facility] - 01 RBC, ur 0-2 0 - 2 /hpf [facility] - 01 Epithelial cells, non-renal, ur None seen 0 - 10 /hpf [facility] - 01 Casts None seen None seen /lpf [facility] - 01 Bacteria, ur None seen None seen/Few [facility] - 01 04/17/2025 4:03 PM CDT 04/17/2025 Narrative [facility] - 04/18/2025 7:09 AM CDT Performed at: [address] [place] [id number] [address] Supervisor: Tra Victoria PhD, Phone: [phone] Annamarie Golden MD LAB BLOOD ORDERABLES Final Resul t [facility] * (ABNORMAL) PSA screen (04/04/2025 8:07 AM CDT) PSA 4.7(H) 0.0 - 4.0 ng/mL [facility] - 01 Comment: Marta ECLIA methodology. According to the [place] [employer], Serum PSA should decrease and remain at undetectable levels after radical prostatectomy. The AUA defines biochemical recurrence as an initial PSA value 0.2 ng/mL or greater followed by a subsequent confirmatory PSA value 0.2 ng/mL or greater. Values obtained with different assay methods or kits cannot be used interchangeably. Results cannot be interpreted as absolute evidence of the presence or absence of malignant disease. Blood 04/04/2025 8:07 AM CDT 04/04/2025 Narrative [facility] - 04/05/2025 8:12 AM CDT Performed at: [address] [place] [id number] Retail [address] Supervisor: Tra Victoria PhD, Phone: [phone] us Annamarie Golden MD LAB BLOOD ORDERABLES Final Resul t [facility] - 01 from Last 3 Months Insurance CHOICE PLUS CHOICE PLUS CHOICE PLUS WORKERS COMPENSATION GENERIC Care Teams Termination Clerk Relationship Specialty Start Date End Date Robert Escobar DO PCP - General Internal Medicine 02/17/21
--- OUTSIDE RECORDS SUMMARY | 2025-04-30 06:54 | XMS_ITS | Encounter Summary ---
Author Organization [facility] Address [address] [place] [address] Phone Care Team Providers Care Smasher Hand Name Role Phone Robert Escobar DO Primary Care Provider Encounter Details Date Type Department Care Team (Late st Contact Info) Description 04/05/2025 Results Follow-Up [facility] [facility] ([facility]) - [facility] Medicine Urology [address] [facility] Medicine 11th [place] [address] [place] [address] Annamarie Golden MD [address] [facility] [address] [place] [address] PSA screen Social History Tobacco Use Types Packs/Day Years [...] on file 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
--- OUTSIDE RECORDS SUMMARY | 2025-04-30 06:54 | XMS_ITS | Encounter Summary ---
Author Organization [facility] Address [address] [place] [address] Phone Care Team Providers Care Welt Sewer Name Role Phone Robert Escobar DO Primary Care Provider Encounter Details Date Type Department Care Team (Late st Contact Info) Description 10/04/2022 Transcribe Orders [facility] Central Scheduling [address] [place] [address] Kevin Hua MD [address] [place] [address] Social History Tobacco Use Types Packs/Day Years Used Date Smoking Tobacco: Never Assessed Sex and Gender Information Value Date Recorded Sex Assigned at Not on file Legal Sex Male 8:49 PM CDT Gender Identity Not on file Sexual Orientation Not on file COVID-19 Exposure Response Date Recorded In the last 10 days, have yo u been in contact with someone who was confirmed or suspected to have Coronavirus/COVID-19? No / Unsure 10/04/2022 10:37 AM CDT documented as of this encounter Plan of Treatment Not on file documented as of this encounter Visit Diagnoses Not on filedocumented in this encounter Care Teams Welt Sewer Relationship Specialty Start Date End Date Robert Escobar DO [facility] [place] [place] [address] PCP - General Internal Medicine 10/04/22 documented as of this encounter
== END 2025-04-30 06:44 | disposition home or self-care (01) ==
PROVIDERS: PCP Internal Medicine; Visit Provider Otolaryngology
DX: H74.92 Unspecified disorder of left middle ear and mastoid (principal); H95.192 Other disorders following mastoidectomy, left ear; J01.90 Acute sinusitis, unspecified; J34.2 Deviated nasal septum; J34.3 Hypertrophy of nasal turbinates
CPT/HCPCS: 70486

== ENCOUNTER 2025-05-25 11:40 | Emergency (ER) | payer MEDICARE, SELFPAY ==
--- OUTSIDE RECORDS SUMMARY | 2019-02-16 03:00 | XMS_ITS | Continuity of Care Document ---
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 House Attendant Name Role Phone Lincoln Birmingham Unavailable Unavail able Procedures Procedure Date WORK COND/WORK HARD RE EVAL Work Conditioning Initial 2 hrs 019 Work Conditioning Initial 2 hrs 019 Work Conditioning add 1 hr Work Conditioning Initial 2 hrs 019 Work Conditioning add 1 hr Work Conditioning Initial 2 hrs 019 Work Conditioning add 1 hr Work Conditioning Initial 2 hrs 019 Work Conditioning add 1 hr Work Cond Initial Report Work Conditioning Initial 2 hrs 019 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 Therapeutic Activities Neuromuscular Re-Ed Therapeutic Exercise Therapeutic Activities Neuromuscular Re-Ed Therapeutic Exercise Therapeutic Activities Neuromuscular Re-Ed Therapeutic Exercise Therapeutic Activities Neuromuscular Re-Ed Therapeutic Exercise Therapeutic Activities Neuromuscular Re-Ed Therapeutic Exercise Therapeutic Activities Neuromuscular Re-Ed Therapeutic Exercise Therapeutic Activities Neuromuscular Re-Ed Manual Therapy Therapeutic Exercise Therapeutic Activities Neuromuscular Re-Ed Manual Therapy Therapeutic Exercise Therapeutic Activities Neuromuscular Re-Ed Manual Therapy Therapeutic Exercise Therapeutic Activities Neuromuscular Re-Ed Manual Therapy Progress Note Therapeutic Exercise Therapeutic Activities Neuromuscular Re-Ed Manual Therapy Therapeutic Exercise Therapeutic Activities Neuromuscular Re-Ed Manual Therapy PT Evaluation Moderate Complexity Therapeutic Exercise Therapeutic Activities Neuromuscular Re-Ed Therapeutic Exercise Therapeutic Activities Neuromuscular Re-Ed Therapeutic Exercise Therapeutic Activities Neuromuscular Re-Ed 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 Therapeutic Activities Neuromuscular Re-Ed Therapeutic Exercise Therapeutic Activities Neuromuscular Re-Ed Therapeutic Exercise Therapeutic Activities Neuromuscular Re-Ed Therapeutic Exercise Therapeutic Activities Neuromuscular Re-Ed Therapeutic Exercise Therapeutic Activities Neuromuscular Re-Ed Progress Note Therapeutic Exercise Therapeutic Activities Neuromuscular Re-Ed Therapeutic Exercise Therapeutic Activities Neuromuscular Re-Ed Hot or Cold Pack Electrical Stimulation Therapeutic Exercise Therapeutic Activities Neuromuscular Re-Ed Therapeutic Exercise Therapeutic Activities Neuromuscular Re-Ed PT Evaluation Moderate Complexity Therapeutic Exercise Therapeutic Activities Manual Therapy Hot or Cold Pack Electrical Stimulation Advance Directives Directive Yes / No Effective Date File Name No Information Encounters Encounter Description Practice Location Reason(s) For Visit Diagnoses Date Provider Providers Copied on Encounter [facility] [address], [place], [place], [id number], tel:[phone] [place] No Information 9 Rahel Stark. [address] [place] [address], [address], [place]. tel:[phone] Referring Provider: Annabelle Hoskins[address], [place], [address]. tel:[phone] [facility] [address], [place], [place], [id number], [place] tel:[phone] [place] No Information 9 [place], [place], [place]. Referring Provider: Erik Hosikns [address], [place], [address]. tel:[phone] [facility], [place], [place], [id number], [place] tel:[phone] [place] No Information 9 [place], [place], [place]. Referring Provider: Erik Hoskins [address], [place], [address]. tel:[phone] [facility] [address], [place], [place], [id number], [place] tel:[phone] [place] No Information 9 [place]. Referring Provider: Erik Hoskins [address], [place], [address]. tel:[phone] [facility], [place], [place], [id number], [place] tel:[phone] [place] No Information 9 [place], [place]. Referring Provider: Moreno Mcadams, [address], [place], [address]. tel:[phone] [facility], [place], [place], [id number], [place] tel:[phone] [place] No Information 9 Rahel Stark. [address] [place] [address], [address], [place]. tel:[phone] Referring Provider: Moreno Mcadams, [address], [place], [address]. tel:[phone] [facility], [place], [place], [id number], [place] tel:[phone] [place] No Information [facility] [place] [place]. Referring Provider: Moreno Mcadams, [address], [place], [address]. tel:[phone] [facility], [place], [place], [id number], [place] tel:[phone] [place] No Information 9 [place]. , [place], [place]. Referring Provider: Moreno Mcadams, [address], [place], [address]. tel:[phone] [facility], [place], [place], [id number], [place] tel:[phone] [place] No Information 9 [place]. , [place], [place]. Referring Provider: Moreno Mcadams, [address], [place], [address]. tel:[phone] [facility], [place], [place], [id number], [place] tel:[phone] [place] No Information 9 Pad[place] Frans[place]. , [place], [place]. Referring Provider: Erik Hoskins [address], [place], [address]. tel:[phone] [facility], [place], [place], [address], [place] tel:[phone] [place] No Information 9 [place]. , [place], [place]. Referring Provider: Erik Hoskins [address], [place], [address]. tel:[phone] [facility], [place], [place], [id number], [place] tel:[phone] [place] No Information 9 [place]. , [place], [place]. Referring Provider: Erik Hoskins [address], [place], [address]. tel:[phone] [facility], [place], [place], [id number], [place] tel:[phone] [place] No Information 9 [place]. , [place], [place]. Referring Provider: Erik Hoskins [address], [place], [address]. tel:[phone] [facility], [place], [place], [address], [place] tel:[phone] [place] No Information 9 [place]. , [place], [place]. Referring Provider: Erik Hoskins [address], [place], [address]. tel:[phone] [facility], [place], [place], [address], [place] tel:[phone] [place] Pain in left kneeStiffness of left knee, not elsewhere classifiedUni lateral primary osteoarthriti s, left knee 9 [place] Frans[place]. , [place], [place]. Referring Provider: Erik Hoskins [address], [place], [address]. tel:[phone] [facility], [place], [place], [address], [place] tel:[phone] [place] Pain in left kneeStiffness of left knee, not elsewhere classifiedUni lateral primary osteoarthriti s, left knee 9 Randy Anthonyn. , [place], [place]. Referring Provider: Erik Hoskins [address], [place], [address]. tel:[phone] [facility], [place], [id number], [place] tel:[phone] [place] Pain in left kneeStiffness of left knee, not elsewhere classifiedUni lateral primary osteoarthriti s, left knee 9 Randy Anthonyn. , [place], [place]. Referring Provider: Erik Hoskins [address], [place], [address]. tel:[phone] [facility], [place], [place], [address], [place] tel:[phone] [place] Pain in left kneeStiffness of left knee, not elsewhere classifiedUni lateral primary osteoarthriti s, left knee 9 Randy Bateman. , [place], [place]. Referring Provider: Erik Hoskins [address], [place], [address]. tel:[phone] [facility], [place], [place], [id number], [place] tel:[phone] [place] Pain in left kneeStiffness of left knee, not elsewhere classifiedUni lateral primary osteoarthriti s, left knee 9 Randy Anthon[place]. , [place], [place]. Referring Provider: Erik Hoskins [address], [place], [address]. tel:[phone] [facility], [place], [place], [address], [place] tel:[phone] [place] Pain in left knee 9 Randy Anthonyn. , [place], [place]. [facility], [address], [place], [place], [address], [place] tel:[phone] [place] Pain in left knee May-1 5-201 9 Randy Bateman. , [place], [place]. [facility], [place], [place], [id number], [place] tel:[phone] [place] Pain in left knee May-1 3-201 9 Randy Bateman. , [place], [place]. [facility], [place], [place], [id number], [place] tel:[phone] [place] Pain in left knee May-1 0-201 9 Randy Bateman. , [place], [place]. [facility], [place], [place], [address], [place] tel:[phone] [place] Pain in left knee May-0 8-201 9 Randy Bateman. , [place], [place]. [facility], [place], [place], [id number], [place] tel:[phone] [place] Pain in left knee May-0 6-201 9 Randy Bateman. , [place], [place]. [facility], [place], [place], [id number], [place] tel:[phone] [place] Pain in left knee May-0 3-201 9 Randy Bateman. , [place], [place]. [facility], [place], [place], [address], [place] tel:[phone] [place] Pain in left knee May-0 1-201 9 Randy Bateman. , [place], [place]. [facility], [place], [place], [address], [place] tel:[phone] [place] Pain in left knee Apr-2 9-201 9 Randy Bateman. , [place], [place]. [facility], [place], [place], [address], [place] tel:[phone] [place] Pain in left knee Apr-2 9 [place], [place]. [facility], [address], [place], [place], [id number], tel:[phone] [place] Pain in left knee Apr-2 9 [place], [place], . [facility], [place], [place], [address], tel:[phone] [place] Pain in left knee Apr-2 9 [place], [place], . Family History Family Member Type Diagnosis Age At Onset No Information Payers Payer name Insurance type Covered libertarian ID Dorcas cevallos(s) [employer] [facility] [id number] One Call - Align [facility] 00 Social History Type Description Quantity Date Captured Comments Sex Male Smoking Status No Information Chief Complaint And Reason For Visit No Information Reason For Referral Reason For Referral No Information History Of Present Illness Encounter Date Complaint History Of Prese nt Illness No Information Functional Status Date Functional Assessmen t No Information Instructions Date Instruction Additional Infor mation No Information Assessments Type Assessment Date No Information Patient Care Teams Name Effective Dates (start - stop) Status Members No Information
--- OUTSIDE RECORDS SUMMARY | 2025-05-25 11:44 | XMS_ITS | Clinical Summary ---
Author Organization [facility] Address [address] [place] [address] Care Team Providers Care Manager Of Drilling Name Role Phone Unavailable Primary Care Provider [...] patient's age to complete this topic Insurance [facility]
--- OUTSIDE RECORDS SUMMARY | 2025-05-25 11:44 | XMS_ITS | Encounter Summary ---
Author Organization [facility] Address [address] [place] [address] Phone Care Team Providers Care Airfield Services Officer Name Role Phone Robert Escobar DO Primary Care Provider [phone]- [phone] Encounter Details Date Type Department Care Team (Late st Contact Info) Description 04/05/2025 Results Follow-Up [place] [facility] ([facility]) [facility] Medicine Urology [address] [facility] Advanced Medicine 11th [place] [address] [place] [address] Annamarie Golden MD [address] [facility] [address] [place] [address] PSA screen Social History Tobacco Use Types [...] on file 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
--- OUTSIDE RECORDS SUMMARY | 2025-05-25 11:44 | XMS_ITS | Clinical Summary ---
Author Organization [facility] Address [address] [place] [address] Care Team Providers Care Cellular Equipment Installer Name Role Phone [facility], External Provider Primary Care Provider U navailable [...] Encounters Date Type Department Care Team Description 05/17/2025 Telephone [facility] [address] [address] Packer fpc 03/19/2025 External Device Data STL ABSTRACTION Provider, [...] Comments Blood Pressure 156/92 05/09/2018 1:20 PM DIRECTOR OF MUSIC THERAPY Pulse 75 05/09/2018 1:20 PM DIRECTOR OF MUSIC THERAPY Temperature 36.1 C (97 F) 05/09/2018 1:20 PM DIRECTOR OF MUSIC THERAPY Respiratory Rate 16 05/09/2018 1:20 PM DIRECTOR OF MUSIC THERAPY Oxygen Saturation 94% 05/09/2018 1:20 PM DIRECTOR OF MUSIC THERAPY Inhaled Oxygen Concentration - - Weight 153.3 [...] (#1) 2025 Medical Devices Implanted Type Area Counting Machine Operator Device Identifier Shelf Expiration Date Model / Serial / Lot Imp Ponto Bhx 4mm Abtmnt-14mm [id number] - [id number] Implanted:Qty : 1 on 05/09/2018 by Moreno Brown MD at [facility] Ear Left: Ear OTICON FARSHAD 07/22/2022 [id number] / / [id number] Description:requisition # [id number] Hemostatic Gelfoam [facility] [id number] - [facility] [place] [id number] Implanted:Qty : 1 on 05/07/2016 by Moreno Brown MD at [facility] Hemostatic Left: Ear PFIZER- PHARM [id number] 08/31/2018 [id number] / / [id number] Hemostatic Gelfoam [facility] [id number] - Csc - [id number] Implanted:Qty : 1 on 12/27/2016 by Moreno Brown MD at [facility] Hemostatic Left: Ear PFIZER- PHARM [id number] 07/03/2017 [id number] / / [id number] Processor Ponto 3 Superpower Implanted:Qty : 1 on 05/09/2018 by Moreno Brown MD at [facility] Integral Left: Ear OTICON FARSHAD / [id number] / Description:REQUISITION # [id number] Right Eye Cataract Excision With Iol Silicone Sheeting Implanted:Qty : 1 on 05/07/2016 by Moreno Brown MD at [facility] Left: Ear INVOTEC INT 12/02/2019 [id number] / / [id number] Description:Medical Grade Cu stom Cut Silicone Sheeting Explanted Type Area Counting Machine Operator Device Identifier Shelf Expiration Date Model / Serial / Lot Shunt Carlos Endolymph [id number] - [id number] Implanted:Qty : 1 Explanted:Qty : 1 on 05/07/2016 by Moreno Brown MD at [facility] Shunt Left: Ear [employer] [id number] 12/16/2021 [id number] / / [id number] Endolymph Shunt Explanted:Qty : 1 on 05/07/2016 by Moreno Brown MD at [facility] Shunt Left: Ear N/A / / N/A Insurance BC[employer]ellow Chip BLUE ACCESS/TRUE BLUE PPO RX [facility] Advance Directives For more information, please contact: [phone] * Full Code (Latest Code Status on [...] 6:28 AM 05/07/2016 6:33 AM Care Teams Cellular Equipment Installer Relationship Specialty Start Date End Date [facility], External Provider [address] [place] [address] PCP - General 04/28/16
--- OUTSIDE RECORDS SUMMARY | 2025-05-25 11:44 | XMS_ITS | Encounter Summary ---
Author Organization [facility] Address [address] [place] [address] Phone Care Team Providers Care Strawhat Blocking Operator Name Role Phone Robert Escobar DO Primary Care Provider +1- [phone] Encounter Details Date Type Department Care Team (Late st Contact Info) Description 04/18/2025 Results Follow-Up [place] [facility] ([facility]) [facility] Medicine Urology [address] [facility] Advanced Medicine 11th [place] [address] [place] [address] Annamarie Golden MD [address] [facility] [address] [place] [address] URINALYSIS, COMPLETE W/REFLEX TO CULTURE, Microscopic Examination [...] on file 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
--- OUTSIDE RECORDS SUMMARY | 2025-05-25 11:44 | XMS_ITS | Clinical Summary ---
Author Organization [facility] Address [address] [place] [address] Care Team Providers Care Supervisor Tellers Name Role Phone Robert Escobar DO Primary Care Provider [phone] Allergies No known active allergies Medications amLODIPine (NORVASC) 10 mg tabletIndications :hypertension Take 10 mg by mouth every morning 1 Active fluticasone propionate 93 mcg/actuation aerosol breath activated Administer into affected nostril(s) daily as needed Active hydroCHLOROthiazi de (HYDRODIURIL) 12.5 mg tablet Take 12.5 mg by mouth every morning 1 Active ibuprofen (ADVIL,MOTRIN) 800 mg tablet Take 800 mg by mouth every 6 (six) hours as needed 1 Active losartan (COZAAR) 100 mg tabletIndications :hypertension Take 100 mg by mouth every morning 1 Active multivitamin tablet Take 1 tablet by mouth daily Active sertraline (ZOLOFT) 100 mg tablet Take 100 mg by mouth every morning 1 Active testosterone cypionate (DEPO-TESTOTERONE ) 100 mg/mL injectionIndicati ons:low testosterone Inject 60 mg into the muscle as instructed every 7 days Active cholecalciferol (VITAMIN D-3) 400 unit capsule Take 400 Units by mouth daily Active tamsulosin (FLOMAX) 0.4 mg extended release capsuleIndication s:Benign prostatic hyperplasia with lower urinary tract symptoms, symptom details unspecified Take 1 capsule (0.4 mg total) by mouth 2 (two) times a day 180 capsule 2 5 05/28/20 25 Active finasteride (PROSCAR) 5 mg tabletIndications :Benign prostatic hyperplasia with lower urinary tract symptoms, symptom details unspecified Take 1 tablet (5 mg total) by mouth daily 30 tablet 11 5 Active vibegron (Gemtesa) 75 mg tablet Take 75 mg by mouth daily 90 tablet 3 5 04/04/20 26 Active tadalafiL (CIALIS) 5 mg tabletIndications :Benign prostatic hyperplasia with lower urinary tract symptoms, symptom details unspecified Take 1 tablet (5 mg total) by mouth daily 90 tablet 3 5 04/20/20 26 Active Active Problems Problem Noted Date Diagnosed Date Elevated PSA 03/02/2021 Overview (03/02/2021): Added automatically from request for surgery [id number] Encounters Date Type Department Care Team Description 04/18/2025 Results Follow[facility]Up [facility] - [facility] Urology [address] [place] [address] 11th [place] [id number] Annamarie Golden MD URINALYSIS, COMPLETE W/REFLEX TO CULTURE, Microscopic Examination 04/17/2025 Orders Only [facility]) - [facility] Urology [address] [place] [address] 11th [place] [address] Annamarie Golden MD 04/17/2025 Orders Only [facility] Surgery [address] [place] [address] [address] [place] [address] Annamarie Golden MD Hematospermia (Primary Dx) 04/17/2025 Telephone [facility] [address] [place] [address] [address] [place] [address] Aida Hernandez RMA 04/05/2025 Results Follow-Up [facility]) - [facility] Urology [address] [place] [address] 11th [place] [address] [place] [address] Annamarie Golden MD PSA screen 04/04/2025 Telephone [facility] Medicine Surgery [address] [place] [address] Yana Chase EMT 03/01/2025 Orders Only [facility] Medicine [facility] Surgery [address] [facility] [address] [place] [phone] Annamarie Golden MD Urgency of urination (Primary Dx) 02/27/2025 Telephone [facility] Medicine Surgery [address] [place] [address] Shana Minor from Last 3 Months Surgical [...] on file 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 Gender Identity Not on file Sexual Orientation [...] Completed 12/31/2009 Medical Devices Implanted Type Area Front Desk Auxiliary Device Identifier Shelf Expiration Date Model / Serial / Lot Oticon Bone Anchored Hearing Aid (Ponto) Implanted: by Unknown, Notinfile (Quantity not on file) Other - see comments Ear OtMyDoc Medical [facility] PONTO 3 SUPERPOWER / [id number] / [id number] Procedures Procedure Name Priority Date/Time Associated Diagnosis Comments MICROSCOPIC EXAMINATION Routine 04/17/2025 4:03 PM CDT URINALYSIS, COMPLETE W/REFLEX TO CULTURE Routine 04/17/2025 4:03 PM CDT PSA SCREEN Routine 04/04/2025 8:07 AM CDT Elevated PSA from Last 3 Months Results * (ABNORMAL) URINALYSIS, COMPLETE W/REFLEX TO CULTURE (04/17/2025 4:03 PM CDT) Pathologist [facility] Specific [place] 1.023 1.005 - 1.030 [facility] - 01 [...] - 04/18/2025 7:09 AM CDT Performed at: [address] [place] [id number] Farm Demonstrator: Tra Victoria PhD, Phone: [phone] Annamarie Golden MD LAB URINE ORDERABLES Final Resul t [facility] * Microscopic Examination (04/17/2025 4:03 PM CDT) Pathologist [facility] WBC, ur None seen 0 - 5 [...] - 04/18/2025 7:09 AM CDT Performed at: [address] [place] [address] [id number] Farm Demonstrator: Tra Victoria PhD, Phone: [phone] Annamarie Golden MD LAB BLOOD ORDERABLES Final Resul t Performing Organization Address [facility]/ZIP Co de Phone Number [facility] - * (ABNORMAL) PSA screen (04/04/2025 8:07 AM CDT) PSA 4.7(H) 0.0 - 4.0 ng/mL [facility] - Comment: Marta ECLIA methodology. According to the [place] [employer], Serum PSA should decrease and [...] or absence of malignant disease. Blood 04/04/2025 8:0 7 AM CDT 04/04/2025 Narrative [facility] - 04/05/2025 8:12 AM CDT Performed at: [address] [place] [address] [id number] Farm Demonstrator: Tra Victoria PhD, Phone: [phone] Annamarie Golden MD LAB BLOOD ORDERABLES Final Resul t [facility] - from Last 3 Months Insurance [employer] CHO[employer] PLUS CHOICE PLUS [place] [id number] [employer] GENERIC Care Teams Supervisor Tellers Relationship Specialty Start Date End Date Robert Escobar DO PCP - General Internal Medicine 02/17/21
--- OUTSIDE RECORDS SUMMARY | 2025-05-25 11:44 | XMS_ITS | Clinical Summary ---
Author Organization [facility] Address [address] [place] [address] Phone Care Team Providers Care Casserole Preparer Name Role Phone Robert Escobar DO Primary Care Provider Social History Tobacco Use Types Packs/Day Years Used Date Smoking Tobacco: Never Assessed Sex and Gender Information Value Date Recorded Sex Assigned at Not on file Legal Sex Male 8:49 PM CDT Gender Identity Not on file Sexual Orientation Not on file Plan of Treatment Health Maintenance Due Date Last Done Comments Hepatitis C Virus (HCV) Screening 1955 Varicella Immunization (1 of 2 - 13+ 2-dose series) 1970 Cologuard 2002 Colonoscopy 2002 Colorectal Cancer Screening [...] patient's age to complete this topic Insurance [facility] [address] [place] [id number] [place] [address] Care Teams Casserole Preparer Relationship Specialty Start Date End Date Robert Escobar DO [address] [address] PCP - General Internal Medicine 10/04/22
--- OUTSIDE RECORDS SUMMARY | 2025-05-25 11:44 | XMS_ITS | Data Portability ---
Author Organization [facility] Address [address] [address] [facility] [address] [place] [address] Care Team Providers Care Water Tender Name Role Phone CHAITANYA GUSTAFSON Primary Care [...] Time 07/01/2017 Sleep Study completed Will Pearce [facility] 07/03/20 17 12:07:36 Imaging Results None recorded. [...] Updated DateTime 07/01/2017 187.96 cm 40.4 kg/m2 843462.6 g Will Pearce [place] - [facility] 07/01/2017 16:15:42 Social History None recorded. Functional Status None recorded. Mental Status None recorded. Family History Nothing Reported. Medical History No medical history recorded. Past Encounters Encounter ID Performer Location Encounter Start Date Encounter Closed Date Diagnosis/Indication Diagnosis SNOMED-CT Code Diagnosis ICD10 Code Diagnosis IMO Codes Diagnosis Note [id number] [facility], [facility] [phone] [facility] [address] [place] [address] 07/01/2017 15:27:01 07/03/2017 12:02:13 Obstructive sleep apnea of adult 2468253182 103 G47.33 Health Concerns Section Related Observation LastModified by Organization Detai ls LastModified Time None Recorded Concern Status LastModified by Organization Details LastModified Time None Recorded Advance Directives Directive None Recorded Payers Insurance Date Sequence Insurance Name Policy Number Policy Garcia Covered Member ID Garcia Member ID Guarantor Name 07/08/2017 1 [facility] (PPO) Aleksey Clark [id number] Aleksey Clark Notes Date Note Type Note Provider Name and Address Organization Details Recorded Time 7 text/html HST SetupReported by PatientEquipment InstructionsFor hst set up, patient reportsdemonstrated to patient how to set up home sleep test device. the patient was able to return demonstration with out difficulty.andthe patient is returning the device the following morning..ROS as noted in the HPI Gerard Wood MD [facility] [id number] [address] [facility] [address], [place], [address], [facility] 07/03/2017 13:55:11
--- OUTSIDE RECORDS SUMMARY | 2025-05-25 11:44 | XMS_ITS | Encounter Summary ---
Author Organization [facility] Address [address] [place] [address] Phone Care Team Providers Care Marketing Clerk Name Role Phone Robert Escobar DO Primary Care Provider Encounter Details Date Type Department Care Team (Late st Contact Info) Description 10/04/2022 Transcribe Orders [facility] Central Scheduling [address] [place] [address] Kevin Hua MD [address] [place] [address] Social History Tobacco Use Types Packs/Day Years [...] on filedocumented in this encounter Care Teams Marketing Clerk Relationship Specialty Start Date End Date Robert Escobar DO [address] [facility] [place] [address] PCP - General Internal Medicine 10/04/22 documented as of this encounter
[2025-05-25 11:48] VITALS: BP 156/78; PULSE 90; RESP 20; TEMP 36.6; O2SAT 97
--- NOTE | 2025-05-25 12:01 | ED.URI ---
HPI - URI/Sore Throat General Chief Complaint: Upper Respiratory Infection Stated Complaint: Cough/Chest Congestion Time Seen by Provider: 05/25/25 11:58 Source: patient, RN notes reviewed and old records reviewed Mode of arrival: ambulatory Limitations: no limitations History of Present Illness HPI Narrative: 70 year old male presents to [facility] with complaints of acute cough with chest congestion, nasal congestion with drainage,dull headache,some sore throat and fatigue since yesterday evening. Patient reports that he has chronic sinus problems and he is suppose to have some sinus surgery and he can't use the steroid sprays now but has been using saline nasal flushes.Patient reports that he has not had any known fevers chills or sweats. He has been taking Mucinex for his symptoms. MD elicited complaint: cough, sore throat, rhinorrhea, nasal congestion, sinus pain and other (headache and fatigue) Pertinent past history: sinusitis Onset (ago): day(s) (sinus yesterday evening) Severity: moderate Description of mucous: clear Able to tolerate fluids by mouth: Yes Treatments prior to arrival: other (mucinex, nasal saline flush) Related Data Home Medications ?Medication ?Instructions ?Recorded ?Confirmed ?Last Taken ?Type tamsulosin 0.4 mg capsule (Flomax) 0.4 mg PO BID 09/01/23 05/17/25 08/06/24 History cholecalciferol (vitamin D3) 125 5,000 unit PO 5XW 04/05/25 05/17/25 Unknown History mcg (5,000 unit) capsule vibegron 75 mg tablet (Gemtesa) 75 mg PO DAILY 04/18/25 05/17/25 Unknown History finasteride 5 mg tablet mg PO 05/17/25 05/17/25 Unknown History tadalafil 5 mg tablet mg PO PRN 05/17/25 05/17/25 Unknown History Allergies Allergy/AdvReac Type Severity Reaction Status Date / Time No Known Allergies Allergy Verified 05/17/25 08:14 Review of Systems Review of Systems: CONSTITUTIONAL: reports malaise,no chills, sweats, or fever. EYES: Denies visual changes, redness, or discharge. ENT: Reports rhinorrhea, congestion, sinus pain,no otalgia and +sore throat. CARDIOVASCULAR: Denies chest pain, palpitations, or edema. RESPIRATORY: Reports productive cough and feelings of congestion.? Denies dyspnea. GASTROINTESTINAL: Denies abdominal pain, nausea, vomiting, diarrhea SKIN: Denies rash or itching. MUSCULOSKELETAL: Denies myalgia. NEUROLOGIC: reports headache. 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 Contusion of left foot Cataract, right eye Essential hypertension Morbid obesity due to excess calories Erectile dysfunction Morbid obesity due to excess calories Osteoarthritis of thumbs, bilateral Encounter for monitoring testosterone replacement therapy Elevated PSA Obesity Elevated PSA measurement Hypogonadism in male Depression Surgical History Surgical History History of back surgery History of arthroscopy of knee 01/15/2021 Family History Family History Father Heart disease CAD Diabetes mellitus Sibling Acute myocardial infarction Pacemaker Unknown Depression Hypertension Social History Social History Social History: caffeine use Smoking status: Never smoker Alcohol intake: current Drinks per week: 1 Alcohol use details: once a month Substance use: never Substance use type: does not use Lack of Transportation: No Lack of Food: Never True Current Housing: I Have Housing Concerned About Future Housing: No Difficulty Paying Gas/Electric Bills: No Difficulty Paying for Meds: No Currently Unemployed: No Education: Trade/Vocational Certificate Difficulty w/ Childcare or Family Care: No Living arrangements: with family Additional living arrangements comments: S.O. 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 There is no relevant family history pertinent to the presenting complaint Exam Narrative: GENERAL: Well-appearing, well-nourished, obese,and in no acute distress. HEAD: Normocephalic EYES: PERRLA, conjunctivae clear ENT: Nares clear, turbinates edematous and erythematous, clear discharge, sinus pressure and headache pain. Mucous membranes moist. TM pearly landa with dull light reflex bilaterally; no tragal tenderness. Oropharynx erythematous without lesions. Tonsils red enlarged and without exudate, no drooling, no hoarseness, no trismus, uvula midline.post nasal drainage NECK: Supple. No lymphadenopathy CHEST: Clear to auscultation, breath sounds equal. No wheezing, rhonchi, rales, or stridor. No respiratory distress, speaks in full sentences.cough noted at times productive SAO2 97% on room air HEART: Regular rate and rhythm. No murmur heard. SKIN: Warm, dry, no rash. NEURO: Alert and oriented x3. PSYCH: Normal mood and affect Course Course Emergency Course: Patient is aware of diagnosis, understands and agrees to treatment plan.? Anticipatory guidance given.? Patient agrees to follow-up as directed and is aware of reasons to seek care at the emergency department. Portions of this record may have been created with voice recognition software Level of Care: Express Care Visit Vital Signs Vital signs: Vital Signs Temperature 36.6 C 05/25/25 11:48 Pulse Rate 90 05/25/25 11:48 Respiratory Rate 20 05/25/25 11:48 Blood Pressure 156/78 H 05/25/25 11:48 Pulse Oximetry 97 05/25/25 11:48 Oxygen Delivery Room Air 05/25/25 11:48 Temperature 36.6 C 05/25/25 11:48 Pulse Rate 90 05/25/25 11:48 Respiratory Rate 20 05/25/25 11:48 Blood Pressure 156/78 H 05/25/25 11:48 Pulse Oximetry 97 05/25/25 11:48 Oxygen Delivery Room Air 05/25/25 11:48 Reviewed MDM - URI/Sore Throat MDM Narrative Medical decision making narrative: Differential diagnosis considered: Norton virus, strep pharyngitis, allergic rhinitis, upper respiratory tract infection, sinusitis, rhinosinusitis, nasopharyngitis. viral pharyngitis, otitis media, otitis externa, pneumonia, bronchitis, viral cough syndrome, viral syndrome, and influenza.? Exam findings show no acute concerns or changes; patient is non-toxic appearing and is in no distress.? Patient is appropriate for outpatient treatment and follow-up. Differential Diagnosis Differential diagnosis: Likely upper respiratory infection, sinusitis, viral infection, bronchitis, influenza, pharyngitis and other (strep pharyngitis, COVID) Lab Data Attestation: I reviewed the patient's lab results. Lab results narrative: strep screen positive, COVID antigen negative, Influenza A&B negative Critical Care Time Critical Care Time Critical Care Time: No Discharge Plan Discharge Clinical Impression: Acute streptococcal pharyngitis, Acute cough Patient Disposition: Home Condition: Stable Instructions: Antibiotic Form, Strep Throat (ED), Acute Cough (ED) Additional Instructions: Increase fluids especially juices and water Asyg-igl-fmmvjov cough and cold medicine of your choice for your symptoms Prescription cough medicine as directed--caution drowsiness and no driving or alcohol Zyrtec, Ebony or Claritin daily Continue your inhaler/nebulizer as directed Steroids as directed--take with food heat to the face 20-30 minutes 4-6 times a day for pain Salt water gargles, throat lozenges or throat sprays as desired Antibiotic as directed--finished the medication If your symptoms persist, change or worsen significantly before you can contact your personal physician then please, without delay, go to the emergency department for further evaluation. Follow-up with PCP in 7-10 days or sooner if needed Follow up with PCP soon in regards to your blood pressure which is elevated above threshold for referral. Blood pressure above 120/80 may indicate pre-hypertension. 156/78 Patient Language: East Timorese Prescriptions: New amoxicillin-pot clavulanate 875-125 mg tablet 1 tablet PO Q12H Qty: 20 0RF Rx Instructions: take all doises with food recommend probiotic or eating Activia yogurt while taking this medication prednisone 20 mg tablet 40 mg PO DAILY Qty: 10 0RF Rx Instructions: take with food albuterol sulfate [Ventolin HFA] 90 mcg/actuation HFA aerosol inhaler 2 puff inhalation QID PRN (Reason: shortness of breath or wheezing) Qty: 8.5 0RF codeine-guaifenesin 10-100 mg/5 mL liquid 10 ml PO Q6H Qty: 120 0RF No Action finasteride 5 mg tablet PO tadalafil 5 mg tablet PO PRN tamsulosin [Flomax] 0.4 mg capsule 0.4 mg PO BID Gemtesa 75 mg tablet 75 mg PO DAILY ibuprofen 800 mg tablet 800 mg PO Q6H PRN (Reason: pain) Qty: 30 1RF hydrochlorothiazide 12.5 mg tablet See Rx Instructions .ROUTE .COMPLEX Qty: 90 1RF Dose Instruction: TAKE 1 TABLET BY MOUTH EVERY DAY Rx Instructions: TAKE 1 TABLET BY MOUTH EVERY DAY, AM amlodipine 10 mg tablet See Rx Instructions .ROUTE .COMPLEX Qty: 90 1RF Dose Instruction: TAKE 1 TABLET BY MOUTH DAILY IN THE MORNING Rx Instructions: TAKE 1 TABLET BY MOUTH DAILY IN THE MORNING testosterone cypionate 200 mg/mL oil 120 mg IM WEEKLY Qty: 10 0RF cholecalciferol (vitamin D3) 125 mcg (5,000 unit) capsule 5,000 unit PO 5XW rosuvastatin 20 mg tablet 20 mg PO QHS Qty: 90 1RF (DME) BD Luer-Richard Syringe 3 mL 23 x 1 syringe See Rx Instructions .ROUTE .COMPLEX Qty: 12 12RF Dose Instruction: USE TO INJECT TESTOSTERONE WEEKLY Rx Instructions: USE TO INJECT TESTOSTERONE WEEKLY sertraline 100 mg tablet See Rx Instructions .ROUTE .COMPLEX Qty: 90 1RF Dose Instruction: TAKE 1 TABLET BY MOUTH EVERY DAY Rx Instructions: TAKE 1 TABLET BY MOUTH EVERY DAY, AM losartan 100 mg tablet 100 mg PO DAILY Qty: 90 1RF Rx Instructions: AM Follow-up/Referrals: Robert Escobar DO [Primary Care Provider, Internal Medicine] Time of Disposition: 12:47 Quality Abdoul Coma Scale Eyes: Open Verbal: Oriented and Alert Motor: Follows Commands Crawford Coma Total Score: 15
[2025-05-27 11:49] LABS: EDCOVIDSCREEN Negative (Negative); EDINFLUASCREEN Negative (Negative); EDINFLUBSCREEN Negative (Negative); EDSTREPNEGPOS1 Positive (Negative)
== END 2025-05-25 12:58 | disposition home or self-care (01) ==
PROVIDERS: Emergency Provider Registered Nurse; PCP Internal Medicine
DX: J02.0 Streptococcal pharyngitis (principal); R05.1 Acute cough; Z20.822 Contact with and (suspected) exposure to COVID-19; I10 Essential (primary) hypertension; E66.01 Morbid (severe) obesity due to excess calories; Z68.41 Body mass index [BMI] 40.0-44.9, adult; M18.0 Bilateral primary osteoarthritis of first carpometacarpal joints; F32.A Depression, unspecified
CPT/HCPCS: 87426; 87804; 87880; 99214; G0463

== ENCOUNTER 2025-05-27 14:17 | Outpatient (CLI) | payer MEDICARE, SELFPAY ==
--- NOTE | ~2025-05-27 | XR_ITS ---
EXAM/PROCEDURE: XR chest 2V HISTORY: Acute cough x 4 days. Rattling, Wheezing, and chest tightness. COMPARISON: 2014 TECHNIQUE: Two view(s) of the chest. FINDINGS: LUNGS: Clear of acute processes. PLEURAL SPACES: Clear. No evidence of fluid or pneumothorax. HEART/ MEDIASTINUM: Normal in appearance. SOFT TISSUES: No significant findings. BONES: No acute osseous abnormality. IMPRESSION: No acute findings. Reviewed, dictated and finalized at location B. L CUT OFF SAW TENDER IMPRESSION: No acute findings.
== END 2025-05-27 14:18 | disposition home or self-care (01) ==
LOC: GOSHIMG 14:18
PROVIDERS: PCP Otolaryngology; Visit Provider Clinical Nurse Specialist
DX: R05.1 Acute cough (principal); R06.02 Shortness of breath
CPT/HCPCS: 71046

== ENCOUNTER 2025-06-06 10:33 | Outpatient (CLI) | payer MEDICARE, SELFPAY ==
--- OUTSIDE RECORDS SUMMARY | 2025-06-06 11:48 | XMS_ITS | Encounter Summary ---
Author Organization [facility] Address [address] [place] [address] Phone Care Team Providers Care Barrel Leveler Name Role Phone Robert Escobar DO Primary Care Provider [phone] Encounter Details Date Type Department Care Team (Late st Contact Info) Description 04/05/2025 Results Follow-Up [facility] ([facility]) [facility] Medicine Urology [address] [facility] 11th [place] [address] [place] [address] Annamarie Golden MD [address] [facility] [address] [place] [address] PSA screen Social History Tobacco Use Types [...] on file 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
--- OUTSIDE RECORDS SUMMARY | 2025-06-06 11:48 | XMS_ITS | Clinical Summary ---
Author Organization [facility] Address [address] [place] [address] Phone Care Team Providers Care Human Resources District Manager Name Role Phone Robert Escobarian Primary Care [...] patient's age to complete this topic Insurance [facility] [address] [place] [place] [id number] [place] [address] Care Teams Human Resources District Manager Relationship Specialty Start Date End Date Robert Escobar DO [address] [facility] [place] [address] PCP - General Internal Medicine 10/04/22
--- OUTSIDE RECORDS SUMMARY | 2025-06-06 11:48 | XMS_ITS | Clinical Summary ---
Author Organization [facility] Address [address] [place] [address] Care Team Providers Care Windows Desktop Support Name Role Phone Unavailable Primary Care Provider [...] patient's age to complete this topic Insurance [facility]
--- OUTSIDE RECORDS SUMMARY | 2025-06-06 11:48 | XMS_ITS | Clinical Summary ---
Author Organization [facility] Administrative Offices Address [address] [place] [address] Care Team Providers Care Communications Analyst Name Role Phone [facility], External Provider Primary Care Provider U [...] Type Department Care Team Description 05/17/2025 Telephone [facility] Ear Nose and Throat [facility] [address] [address] Packer [facility] 03/19/2025 External Device Data STL ABSTRACTION Provider, [...] Comments Blood Pressure 156/92 05/09/2018 1:20 PM DIRECT MAIL MANAGER Pulse 75 05/09/2018 1:20 PM DIRECT MAIL MANAGER Temperature 36.1 C (97 F) 05/09/2018 1:20 PM DIRECT MAIL MANAGER Respiratory Rate 16 05/09/2018 1:20 PM DIRECT MAIL MANAGER Oxygen Saturation 94% 05/09/2018 1:20 PM DIRECT MAIL MANAGER Inhaled Oxygen Concentration - - Weight 153.3 [...] (#1) 2025 Medical Devices Implanted Type Area Lacquer Dipping Machine Operator Device Identifier Shelf Expiration Date Model / Serial / Lot Imp Ponto Bhx 4mm Abtmnt-14mm [id number] - [id number] Implanted:Qty : 1 on 05/09/2018 by Moreno Brown MD at [facility] Ear Left: Ear OTICON FARSHAD 07/22/2022 [id number] / / [id number] Description:requisition # [id number] Hemostatic Gelfoam [facility] [id number] - [facility] - [id number] Implanted:Qty : 1 on 05/07/2016 by Moreno Brown MD at [facility] Hemostatic Left: Ear PFIZER- PHARM [id number] 08/31/2018 [id number] / / [id number] Hemostatic Gelfoam [facility] [id number] - Csc - [id number] Implanted:Qty : 1 on 12/27/2016 by Moreno Brown MD at [facility] Hemostatic Left: Ear PFIZER- PHARM [id number] 07/03/2017 [id number] / / [id number] Processor Ponto 3 Superpower Implanted:Qty : 1 on 05/09/2018 by Moreno Brown MD at [facility] Integral Left: Ear OTICON FARSHAD / [id number] / Description:REQUISITION # [id number] Right Eye Cataract Excision With Iol Silicone Sheeting Implanted:Qty : 1 on 05/07/2016 by Moreno Brown MD at [facility] Left: Ear INVOTEC INT 12/02/2019 [id number] / / [id number] Description:Medical Grade Cu stom Cut Silicone Sheeting Explanted Type Area Lacquer Dipping Machine Operator Device Identifier Shelf Expiration Date Model / Serial / Lot Shunt Carlos Endolymph [id number] - [id number] Implanted:Qty : 1 Explanted:Qty : 1 on 05/07/2016 by Moreno Brown MD at [facility] Shunt Left: Ear [employer] [id number] 12/16/2021 [id number] / / [id number] Endolymph Shunt Explanted:Qty : 1 on 05/07/2016 by Moreno Brown MD at [facility] Shunt Left: Ear N/A / / N/A Insurance [id number].MRKT BLUE ACCESS/TRUE BLUE PPO RX [facility] [employer] [facility] Advance Directives For more information, please contact: [phone] * Full Code (Latest Code Status on [...] 6:28 AM 05/07/2016 6:33 AM Care Teams Communications Analyst Relationship Specialty Start Date End Date [facility], External Provider [address] [place] [place] [address] PCP - General 04/28/16
--- OUTSIDE RECORDS SUMMARY | 2025-06-06 11:48 | XMS_ITS | Clinical Summary ---
Author Organization [facility] Address [address] [place] [address] Care Team Providers Care Hotel Concierge Name Role Phone Robert Escobar DO Primary Care Provider +1- [phone] Allergies No known active allergies Medications amLODIPine [...] times a day 180 capsule 2 5 Active finasteride (PROSCAR) 5 mg tabletIndications :Benign [...] (03/02/2021): Added automatically from request for surgery [id number] Encounters Date Type Department Care Team Description 04/18/2025 Results Follow-Up [facility]) - [facility] [address] [place] [address] 11th [place] [address] Annamarie Golden MD URINALYSIS, COMPLETE W/REFLEX TO CULTURE, Microscopic Examination 04/17/2025 Orders Only [facility]) - [facility] [address] [place] [address] 11th [place] [address] Annamarie Golden MD 04/17/2025 Orders Only [facility] [address] [place] [address] [address] [place] [address] Annamarie Golden MD Hematospermia (Primary Dx) 04/17/2025 Telephone [facility] [address] [place] [address] [address] [place] [address] Aida Hernandez RMA 04/05/2025 Results Follow-Up [facility]) - [facility] [address] [place] [address] 11th [place] [address] [place] [address] Annamarie Golden MD PSA screen 04/04/2025 Telephone [facility] Medicine Surgery [address] [place] [address] Yana Chase, HUONG from Last 3 Months Surgical History Surgery [...] on file 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 Gender Identity Not on file Sexual Orientation [...] Completed 12/31/2009 Medical Devices Implanted Type Area Building Coordinator Device Identifier Shelf Expiration Date Model / Serial / Lot Oticon Bone Anchored Hearing Aid (Ponto) Implanted: by Unknown, Notinfile (Quantity not on file) Other - see comments Ear OtThoughtFocus PONTO 3 SUPERPOWER / [id number] / [id number] Procedures Procedure Name Priority Date/Time Associated Diagnosis Comments MICROSCOPIC EXAMINATION Routine 04/17/2025 4:03 PM CDT URINALYSIS, COMPLETE W/REFLEX TO CULTURE Routine 04/17/2025 4:03 PM CDT PSA SCREEN Routine 04/04/2025 8:07 AM CDT Elevated PSA from Last 3 Months Results * (ABNORMAL) URINALYSIS, COMPLETE W/REFLEX TO CULTURE (04/17/2025 4:03 PM CDT) Specific [place] 1.023 1.005 - 1.030 [facility] - 01 [...] - 04/18/2025 7:09 AM CDT Performed at: [address] [id number] Neuroscience Specialist: Tra Victoria PhD, Phone: [phone] Annamarie Golden MD LAB URINE ORDERABLES Final Resul t Performing Organization Address [facility] Co de Phone Number [facility] - 01 * Microscopic Examination (04/17/2025 [...] - 04/18/2025 7:09 AM CDT Performed at: [address] [id number] Neuroscience Specialist: Tra Victoria PhD, Phone: [phone] Annamarie Golden MD LAB BLOOD ORDERABLES Final Resul t [facility] - 01 * (ABNORMAL) PSA screen (04/04/2025 8:07 AM CDT) PSA 4.7(H) 0.0 - 4.0 ng/mL [facility] - Comment: Marta ECLIA methodology. According to the [place] U[employer], Serum PSA should decrease and [...] - 04/05/2025 8:12 AM CDT Performed at: [address] [place] [id number] Neuroscience Specialist: Tra Victoria PhD, Phone: [phone] Annamarie Golden MD LAB BLOOD ORDERABLES Final Resul t Performing Organization Address City/[facility] Co de Phone Number [facility] - 01 from Last 3 Months Insurance [id number] CHOICE PLUS CHOICE PLUS CHOICE PLUS WORKERS COMPENSATION GENERIC Care Teams Hotel Concierge Relationship Specialty Start Date End Date Robert Escobar DO PCP - General Internal Medicine 02/17/21
--- OUTSIDE RECORDS SUMMARY | 2025-06-06 11:48 | XMS_ITS | Encounter Summary ---
Author Organization [facility] Address [address] [place] [address] Phone Care Team Providers Care Photoengraving Machine Operator/Tender Name Role Phone Robert Escobar DO Primary Care Provider Encounter Details Date Type Department Care Team (Late st Contact Info) Description 10/04/2022 Transcribe Orders [facility] Central Scheduling [address] [place] [address] Kevin Hua MD [address] [place] [address] Social History Tobacco Use Types Packs/Day Years [...] on filedocumented in this encounter Care Teams Photoengraving Machine Operator/Tender Relationship Specialty Start Date End Date Robert Escobar DO [address] [facility] [place] [address] PCP - General Internal Medicine 10/04/22 documented as of this encounter
--- OUTSIDE RECORDS SUMMARY | 2025-06-06 11:48 | XMS_ITS | Encounter Summary ---
Author Organization [facility] Address [address] [place] [address] Phone Care Team Providers Care Linen Room Houseperson Name Role Phone Robert Escobar DO Primary Care Provider +1- [phone] Encounter Details Date Type Department Care Team (Late st Contact Info) Description 04/18/2025 Results Follow-Up [facility]) [facility] Medicine Urology [address] [facility] Advanced Medicine 11th [place] [address] [place] [address] Annamarie Golden MD [address] [facility] [address] [place] [address] URINALYSIS, COMPLETE W/REFLEX TO CULTURE, Microscopic Examination [...] on file 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
[2025-06-06 15:08] LABS: Influenza A QL RT-PCR Negative (Negative); Influenza B QL RT-PCR Negative (Negative); RSV RNA, RT-PCR Negative (Negative); SARS-CoV-2 RNA PCR Negative (Negative)
== END 2025-06-06 10:34 | disposition home or self-care (01) ==
LOC: ANHGOSHLAB 10:34
PROVIDERS: PCP Internal Medicine; Visit Provider Nurse Practitioner
DX: R05.1 Acute cough (principal); Z20.822 Contact with and (suspected) exposure to COVID-19
CPT/HCPCS: 87637

== ENCOUNTER 2025-06-17 15:22 | Outpatient (CLI) | payer MEDICARE, SELFPAY ==
--- NOTE | 2025-06-17 15:15 | ECG_ITS ---
Test Date: 2025-06-17 15:43:59 Measurements Intervals [place] Rate: 87 P: 44 OR: 166 QRS: 31 QRSD: 93 T: 49 QT: 316 QTc: 381 Interpretive Statements SINUS RHYTHM MISSING LEAD V2 BASELINE ARTIFACT- I, II, III, AVR, AVL, AVF, V1 BORDERLINE ECG Compared to ECG 01/04/2024 14:39:08 NO SIGNIFICANT CHANGE Electronically Signed On 06-17-2025 15:58:48 CIRCULATION MANAGER by Mario Lawton D.O.
[2025-06-17 16:14] LABS: Anion Gap 5 mmol/L (4-12); Blood Urea Nitrogen 15 mg/dL (9-20); Calcium 9.7 mg/dL (8.4-10.2); Carbon Dioxide 29 mmol/L (22-30); Chloride 103 mmol/L (98-107); Estimated Glomerular Filt Rate > 60; Glucose 107 mg/dL (65-110); Potassium 3.9 mmol/L (3.4-5.0); Sodium 137 mmol/L (137-145)
--- OUTSIDE RECORDS SUMMARY | 2025-06-17 17:49 | XMS_ITS | Encounter Summary ---
Author Organization [facility] Address [address] [place] [address] Phone Care Team Providers Care Elderly Companion Name Role Phone Robert Escobar DO Primary Care Provider +1- [phone] Encounter Details Date Type Department Care Team (Late st Contact Info) Description 04/18/2025 Results Follow-Up [facility] [facility] ([facility]) [facility] Medicine Urology [address] [facility] Advanced Medicine 11th [place] [address] [place] [address] Annamarie Golden MD [address] [facility] [address] [place] [address] URINALYSIS, COMPLETE W/REFLEX TO CULTURE, Microscopic Examination [...] on file 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
--- OUTSIDE RECORDS SUMMARY | 2025-06-17 17:50 | XMS_ITS | Clinical Summary ---
Author Organization [facility] Administrative Offices Address [address] [place] [address] Care Team Providers Care Credentialing Analyst Name Role Phone [facility], External Provider Primary Care Provider U [...] [facility] [address] [address] Packer halfway 03/19/2025 External Device Data STL ABSTRACTION Provider, [...] Comments Blood Pressure 156/92 05/09/2018 1:20 PM HOSPITALIST MEDICAL DIRECTOR Pulse 75 05/09/2018 1:20 PM HOSPITALIST MEDICAL DIRECTOR Temperature 36.1 C (97 F) 05/09/2018 1:20 PM HOSPITALIST MEDICAL DIRECTOR Respiratory Rate 16 05/09/2018 1:20 PM HOSPITALIST MEDICAL DIRECTOR Oxygen Saturation 94% 05/09/2018 1:20 PM HOSPITALIST MEDICAL DIRECTOR Inhaled Oxygen Concentration - - Weight 153.3 [...] (#1) 2025 Medical Devices Implanted Type Area Hydraulic Press Operator Device Identifier Shelf Expiration Date Model / Serial / Lot Imp Ponto Bhx 4mm Abtmnt-14mm [id number] - [id number] Implanted:Qty : 1 on 05/09/2018 by Moreno Brown MD at [facility] Ear Left: Ear OTICON FARSHAD 07/22/2022 [id number] / / [id number] Description:requisition # [id number] Hemostatic Gelfoam [facility] [id number] - [facility] - [id number] Implanted:Qty : 1 on 05/07/2016 by Moreno Brown MD at [facility] Hemostatic Left: Ear PFIZER- PHARM [id number] 08/31/2018 [id number] / / [id number] Hemostatic Gelfoam [facility] [id number] - Csc - [id number] Implanted:Qty : 1 on 12/27/2016 by Moreno Brown MD at [facility] Hemostatic Left: Ear PFIZER- PHARM [id number] 07/03/2017 [id number] / / [id number] Processor Ponto 3 Superpower Implanted:Qty : 1 on 05/09/2018 by Moreno Brown MD at [facility] Integral Left: Ear OTICON FARSHAD / [id number] / Description:REQUISITION # 85 0799 Right Eye Cataract Excision With Iol Silicone Sheeting Implanted:Qty : 1 on 05/07/2016 by Moreno Brown MD at [facility] Left: Ear INVOTEC INT 12/02/2019 [id number] / / [id number] Description:Medical Grade Cu stom Cut Silicone Sheeting Explanted Type Area Hydraulic Press Operator Device Identifier Shelf Expiration Date Model / Serial / Lot Shunt Carlos Endolymph [id number] - [id number] Implanted:Qty : 1 Explanted:Qty : 1 on 05/07/2016 by Moreno Brown MD at [facility] Shunt Left: Ear [employer] [id number] 12/16/2021 [id number] / / [id number] Endolymph Shunt Explanted:Qty : 1 on 05/07/2016 by Moreno Brown MD at [facility] Shunt Left: Ear N/A / / N/A Insurance [employer] BLUE ACCESS/TRUE BLUE PPO RX [facility] [employer] [facility] Advance Directives For more information, please contact: [phone] * Full Code (Latest Code Status on [...] 6:28 AM 05/07/2016 6:33 AM Care Teams Credentialing Analyst Relationship Specialty Start Date End Date [facility], External Provider [address] [place] [address] [place] [address] PCP - General 04/28/16
--- OUTSIDE RECORDS SUMMARY | 2025-06-17 17:50 | XMS_ITS | Encounter Summary ---
Author Organization [facility] Address [address] [place] [address] Phone Care Team Providers Care Molding Technician Name Role Phone Robert Escobar DO Primary Care Provider Encounter Details Date Type Department Care Team (Late st Contact Info) Description 10/04/2022 Transcribe Orders [facility] Central Scheduling [address] [place] [address] Kevin Hua MD [address] [place] [address] Social History Tobacco Use Types Packs/Day Years [...] on filedocumented in this encounter Care Teams Molding Technician Relationship Specialty Start Date End Date Robert Escobar DO [address] [facility] [place] [address] PCP - General Internal Medicine 10/04/22 documented as of this encounter
--- OUTSIDE RECORDS SUMMARY | 2025-06-17 17:50 | XMS_ITS | Clinical Summary ---
Author Organization [facility] Address [address] [place] [address] Care Team Providers Care Meat Smoker Name Role Phone Unavailable Primary Care Provider [...] patient's age to complete this topic Insurance [facility]
--- OUTSIDE RECORDS SUMMARY | 2025-06-17 17:50 | XMS_ITS | Clinical Summary ---
Author Organization [facility] Address [address] [place] [address] Care Team Providers Care Cloth Pattern Maker Name Role Phone Robert Escobar DO Primary Care Provider +1- [phone] Allergies No known active allergies Medications amLODIPine [...] (03/02/2021): Added automatically from request for surgery [id number] Encounters Date Type Department Care Team Description 04/18/2025 Results Follow[facility]Up [facility] - [facility] [address] [place] [address] 11th [place] [address] Annamarie Golden MD URINALYSIS, COMPLETE W/REFLEX TO CULTURE, Microscopic Examination 04/17/2025 Orders Only [facility]) - [facility] [address] [place] [address] 11th [place] [address] Annamarie Golden MD 04/17/2025 Orders Only [facility] [address] [place] [address] [address] [place] [address] Annamarie Golden MD Hematospermia (Primary Dx) 04/17/2025 Telephone [facility] [address] [place] [address] [address] [place] [address] Aida Hernandez RMA 04/05/2025 Results Follow-Up [facility]) - [facility] [address] [place] [address] 11th [place] [address] [place] [address] Annamarie Golden MD PSA screen 04/04/2025 Telephone [facility] Medicine Surgery [address] [place] [address] Yana Chase, HUONG from Last 3 Months [...] on file 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 Gender Identity Not on file Sexual Orientation [...] Completed 12/31/2009 Medical Devices Implanted Type Area Shipwright Device Identifier Shelf Expiration Date Model / Serial / Lot Oticon Bone Anchored Hearing Aid (Ponto) Implanted: by Unknown, Notinfile (Quantity not on file) Other - see comments Ear OtParkplatzking PONTO 3 SUPERPOWER / [id number] / [id number] Procedures Procedure Name Priority Date/Time Associated Diagnosis Comments MICROSCOPIC EXAMINATION Routine 04/17/2025 4:03 PM CDT URINALYSIS, COMPLETE W/REFLEX TO CULTURE Routine 04/17/2025 4:03 PM CDT PSA SCREEN Routine 04/04/2025 8:07 AM CDT Elevated PSA from Last 3 Months Results * (ABNORMAL) URINALYSIS, COMPLETE W/REFLEX TO CULTURE (04/17/2025 4:03 PM CDT) Specific [place] 1.023 1.005 - 1.030 [facility] - 01 [...] - 04/18/2025 7:09 AM CDT Performed at: [address] [id number] Face Man: Tra Victoria PhD, Phone: [phone] Annamarie Golden MD LAB URINE ORDERABLES Final Resul t Performing Organization Address [facility] Co de Phone Number [facility] [...] - 04/18/2025 7:09 AM CDT Performed at: [address] [id number] Face Man: Tra Victoria PhD, Phone: [phone] Annamarie Golden MD LAB BLOOD ORDERABLES Final Resul t [facility] - 01 * (ABNORMAL) PSA screen (04/04/2025 8:07 AM CDT) PSA 4.7(H) 0.0 - 4.0 ng/mL [facility] - Comment: Marta ECLIA methodology. According to the [place] [employer], Serum PSA should decrease and [...] - 04/05/2025 8:12 AM CDT Performed at: [address] [place] [id number] Face Man: Tra Victoria PhD, Phone: [phone] Annamarie Golden MD LAB BLOOD ORDERABLES Final Resul t Performing Organization Address City/[facility] Co de Phone Number [facility] - 01 from Last 3 Months Insurance [id number]US [facility] HMO/PPO Address: [facility] [address] [place] [address] CHOICE PLUS [facility] HMO/[place] [address] CHOICE PLUS [facility] HMO/PPO Address: [place] [address] WORKERS COMPENSATION GENERIC Care Teams Cloth Pattern Maker Relationship Specialty Start Date End Date Robert Escobar DO PCP - General Internal Medicine 02/17/21
--- OUTSIDE RECORDS SUMMARY | 2025-06-17 17:50 | XMS_ITS | Data Portability ---
Author Organization [facility] [place] (11[facility] [address] [facility] [address] [place] [address] Care Team Providers Care Greenskeeper Supervisor Name Role Phone CHAITANYA GUSTAFSON Primary Care [...] Time 07/01/2017 Sleep Study completed Will Pearce [facility] 07/03/20 17 12:07:36 Imaging Results None recorded. [...] Updated DateTime 07/01/2017 187.96 cm 40.4 kg/m2 793579.6 g Will Pearce [place] [facility] 07/01/2017 16:15:42 Social History None recorded. Functional Status None recorded. Mental Status None recorded. Family History Nothing Reported. Medical History No medical history recorded. Past Encounters Encounter ID Performer Location Encounter Start Date Encounter Closed Date Diagnosis/Indication Diagnosis SNOMED-CT Code Diagnosis ICD10 Code Diagnosis IMO Codes Diagnosis Note [id number] [facility], [facility] (28) [address] [facility] [address] [place] [address] 07/01/2017 15:27:01 07/03/2017 12:02:13 Obstructive sleep apnea of adult 6010863158 103 G47.33 Health Concerns Section Related Observation LastModified by Organization Detai ls LastModified Time None Recorded Concern Status LastModified by Organization Details LastModified Time None Recorded Advance Directives Directive None Recorded Payers Insurance Date Sequence Insurance Name Policy Number Policy Garcia Covered Member ID Garcia Member ID Guarantor Name 07/08/2017 1 [facility] ([facility] Aleksey Clark [id number] Aleksey Clark Notes Date Note Type Note Provider Name and Address Organization Details Recorded Time 7 text/html HST SetupReported by PatientEquipment InstructionsFor hst set up, patient reportsdemonstrated to patient how to set up home sleep test device. the patient was able to return demonstration with out difficulty.andthe patient is returning the device the following morning..ROS as noted in the HPI Gerard Wood MD [facility] [id number] [facility] [address], [place], [address], [facility] 07/03/2017 13:55:11
--- OUTSIDE RECORDS SUMMARY | 2025-06-17 17:50 | XMS_ITS | Clinical Summary ---
Author Organization [facility] Address [address] [place] [address] Phone Care Team Providers Care Boot And Saddle Repair Person Name Role Phone Robert Escobarian Primary Care [...] Completed 05/15/2021, 09/22/2009 Human Papillomavirus (HPV) Immunization (No Doses Required) Completed Meningococcal Immunization (ACWY) Aged Out No longer eligible based on patient's age to complete this topic Rotavirus Immunization Aged Out No lo nger eligible based on patient's age to complete this topic Insurance [facility] [id number] Care Teams Boot And Saddle Repair Person Relationship Specialty Start Date End Date Robert Escobar DO [address] [place] [address] PCP - General Internal Medicine 10/04/22
--- OUTSIDE RECORDS SUMMARY | 2025-06-17 17:50 | XMS_ITS | Clinical Summary ---
Author Organization [employer] [facility] [employer] Address [address] [place] [address] Care Team Providers Care Program Control Analyst Name Role Phone No, Pcp [employer] Primary Care Provider Unavailabl e Social History Tobacco Use Types Packs/Day Years Used Date Smoking Tobacco: Never Assessed Sex and Gender Information Value Date Recorded Sex Assigned at Not on file Legal Sex Male 2:50 PM EST Gender Identity Not on file Sexual Orientation Not on file Plan of Treatment Not on file Medical Devices Not on file Care Teams Program Control Analyst Relationship Specialty Start Date End Date No, Pcp, [employer] N/A Do not use PCP - General Family Medicine 06/08/20
== END 2025-06-17 15:23 | disposition home or self-care (01) ==
LOC: ANHSURGERY 15:26
PROVIDERS: Anesthesiology; PCP Internal Medicine; Visit Provider Otolaryngology
DX: Z01.818 Encounter for other preprocedural examination (principal); I10 Essential (primary) hypertension
CPT/HCPCS: 36415; 80048; 93005

== ENCOUNTER 2025-06-24 00:56 | Day surgery (SDC) | payer MEDICARE, SELFPAY ==
--- NOTE | 2025-06-14 12:15 | PC.NURSE ---
[facility] has started construction of its new state of the art ER which will open Spring 2026. With this, we anticipate parking may be a challenge for some our surgical patients and families. Parking spaces are limited but are available for all Surgical, obstetrics, and ER patients sharing this lot. If you arrive and find you are having a hard time finding a parking space, please note that we understand the challenges, please drive around the hospital and park near Hospital Entrance 1. When you enter this entrance, you can ask a volunteer to direct or take you back to the surgical waiting area to check in. We appreciate everyone?s understanding of these expected challenges while we build for your future. Report to the Outpatient Waiting Room, entrance under the green pavilion located off [address], at time __9:30 am on date __06/24/25 . Planned Procedure Time: __11:30 am .? Time changes happen often and if your time is changed the preop area will call you the afternoon before. - You and your visitor will be asked to self-screen and do not enter if you have any COVID symptoms. Please call surgeon if you need to reschedule. - A mask is optional within the hospital at this time. Patients may have clear liquids (water, carbonated beverages, clear teas, apple juice) until 3 hours prior to surgery(8:30 am) with a maximum of 20 ounces. - No food from midnight until time of surgery and no smoking, or chewing tobacco (or any form of nicotine). No chewing gum, candy or mints. Take only the following medications with a SIP of water on the morning of surgery: _AMLODIPINE, SERTRALINE DO NOT STOP ANY OF YOUR OTHER PRESCRIPTION MEDICATIONS PRIOR TO SURGERY EXCEPT THE FOLLOWING Hold all vitamins and supplements for 3 days per anesthesiologist.LAST DOSE 06/20/25 Medications to discontinue per physician IBUPROFEN PER DR DYER Please no make-up, nail persian, hairspray, perfume, deodorant, or body powder the day of surgery.? No jewelry (including any body piercings) or valuables the day of surgery, leave them at home.? Please take a shower or bath the night before, or the morning of, surgery with an antibacterial soap.? Wear comfortable, loose fitting clothing.? Children are encouraged to wear pajamas. - Jewelry must be removed prior to entering the operating room.? Rings and piercings that are not removed may be cut off. - The hospital will not accept responsibility for valuables.? - Please leave all valuables, including medications, at home the day of surgery. If you are going home after surgery, a licensed courtesy driver must drive you home.? - NO public transportation without another adult if you receive anesthesia. - We recommend that an adult stay with you for 24 hours following discharge. - We also recommend that you do not drive, make important decision, drink alcoholic beverages, or take any drugs that were not prescribed by your health care provider for at least 24 hours after your discharge time. For Pediatric surgeries, we recommend two adults accompany the child home. Follow any additional instructions given to you from your surgeon. Telephone instructions given to __PATIENT and asked if any additional questions and then verbalized understanding. Patient advised to call surgeon office or pre surgery nurse liaison [phone] if any additional questions.
[2025-06-14 12:32] VITALS: BMI 44.9
--- NOTE | 2025-06-23 14:55 | PM.IMHP2 ---
H&P: HPI History of Present Illness Date/Time: 06/23/25 14:55 Chief Complaint: Nasal obstruction nasal congestion septal deviation turbinate hypertrophy Narrative: planned surgical procedure Review of Systems Review of Systems: All systems reviewed & are unremarkable except as noted in HPI and below [facility] Past Medical History Medical History Poison radha Essential hypertension, benign Chronic pain of left knee Acute suppurative otitis media of left ear Infective otitis externa Osteochondral defect of condyle of femur Acute medial meniscus tear of right knee Colon cancer screening 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 Chondromalacia, 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 Contusion of left foot Cataract, right eye Essential hypertension Morbid obesity due to excess calories Erectile dysfunction Morbid obesity due to excess calories Osteoarthritis of thumbs, bilateral Encounter for monitoring testosterone replacement therapy Elevated PSA Obesity Elevated PSA measurement Hypogonadism in male Depression Surgical History Surgical History History of back surgery History of arthroscopy of knee 01/15/2021 Family History Family History Father Heart disease CAD Diabetes mellitus Sibling Acute myocardial infarction Pacemaker Unknown Depression Hypertension Social History Social History Social History: caffeine use Smoking status: Never smoker Alcohol intake: current Drinks per week: 1 Alcohol use details: once a month Substance use: never Substance use type: does not use Lack of Transportation: No Lack of Food: Never True Current Housing: I Have Housing Concerned About Future Housing: No Difficulty Paying Gas/Electric Bills: No Difficulty Paying for Meds: No Currently Unemployed: No Education: Trade/Vocational Certificate Difficulty w/ Childcare or Family Care: No Living arrangements: with family Additional living arrangements comments: S.O. Occupation/Education: occupation Additional occupation/education comments: [employer] Gender identity (if verbalized by the patient): Male Spiritual care concerns: No Meds Home Medications and Allergies Home Medications ?Medication ?Instructions ?Recorded ?Confirmed ?Type tamsulosin 0.4 mg capsule (Flomax) 0.4 mg PO BID 09/01/23 06/14/25 History ibuprofen 800 mg tablet 800 mg PO Q6H PRN pain #30 tabs 10/08/24 06/14/25 Rx amlodipine 10 mg tablet See Rx Instructions .Route 02/08/25 06/14/25 Rx .COMPLEX #90 tabs testosterone cypionate 200 mg/mL 120 mg (0.6 mL) IM WEEKLY #10 mL 04/04/25 06/14/25 Rx intramuscular oil cholecalciferol (vitamin D3) 125 5,000 unit PO 5XW 04/05/25 06/14/25 History mcg (5,000 unit) capsule rosuvastatin 20 mg tablet 20 mg PO QHS #90 tabs 04/08/25 06/14/25 Rx vibegron 75 mg tablet (Gemtesa) 75 mg PO DAILY 04/18/25 06/14/25 History syringe with needle 3 mL 23 x 1 #12 ea 04/22/25 05/17/25 Rx (BD Luer-Richard Syringe) losartan 100 mg tablet 100 mg PO DAILY #90 tabs 04/25/25 06/14/25 Rx sertraline 100 mg tablet See Rx Instructions .Route 04/25/25 06/14/25 Rx .COMPLEX #90 tabs finasteride 5 mg tablet 5 mg PO DAILY 05/17/25 06/14/25 History albuterol sulfate 90 mcg/actuation 2 puff inhalation QID PRN 05/25/25 06/14/25 Rx aerosol inhaler (Ventolin HFA) shortness of breath or wheezing #8.5 grams tadalafil 5 mg tablet 5 mg PO QPM 06/06/25 06/14/25 History hydrochlorothiazide 12.5 mg tablet See Rx Instructions .Route 06/17/25 Rx .COMPLEX #90 tabs Allergies Allergy/AdvReac Type Severity Reaction Status Date / Time No Known Allergies Allergy Verified 06/14/25 12:14 Exam Narrative: septal deviation turbinate hypertrophy Assessment and Plan Assessment and plan (1) Nasal obstruction: Code(s): J34.89 - Other specified disorders of nose and nasal sinuses Status: Acute Assessment and Plan: OR for an endoscopic assisted septoplasty bilateral inferior turbinate reduction with outfracture. Total operative time 1:00 hour. Anesthesia general. Risks were discussed bleeding infection damage to any structures need further procedures. Change in taste changes aud could be permanent. Septal perforation. Change in cosmesis. The resolve symptoms. Need further procedures. Empty nose syndrome. Numbness of the central incisors. Damage to any structure of the clavicle by myself. Damage to any structure induction remains anesthesia including vocal cord paralysis. CSF leak brain brain damage change in vision total blindness time-out for time off school inherent risk of antibiotic in our cotton cues. Multiple issues discussion of major surgery. (2) Hypertrophy of both inferior nasal turbinates: Code(s): J34.3 - Hypertrophy of nasal turbinates Status: Acute (3) Nasal septal deviation: Code(s): J34.2 - Deviated nasal septum Status: Acute
[2025-06-24] VITALS (8 sets, daily range): BP systolic 138–183; BP diastolic 79–93; PULSE 72–80; RESP 14–20; TEMP 36.2–36.4; O2SAT 96–100
--- NOTE | 2025-06-24 07:23 | WPDHPUPDATE1 ---
History and Physical Update Update Date/Time: 06/24/25 07:23 History and Physical has been reviewed, including an updated exam of the patient. There are NO changes in the patient's condition. Risks, benefits, and alternatives have been discussed and questions answered. Patient agrees to proceed with procedure.
[2025-06-24] MEDS: ACETAMINOPHEN 500 MG TABLET 1000 MG PO (10:05)
[2025-06-24] MEDS: LACTATED RINGERS 1,000 ML 30 ML IV CONT ×2 (10:10→11:59)
--- NOTE | 2025-06-24 10:24 | WPDANESEPPF ---
Anes - Initial Pre Proc Eval Procedure: Operation Date: 06/24/25 11:30 Proposed Procedures p Bilateral Inferior Turbinate Reduction with Outfracture - Negro Villalobos MD s Endoscopic Assisted Septoplasty - Negro Villalobos MD Date/Time: 06/24/25 10:24 Surgeon: Negro Villalobos MD Pre Op Diagnosis: chr sinusitis, hypertrophic of nasal turbinates Patient Data Age: 70 Gender: M Height: 1.88 m Weight: 160.6 kg Last Vital Signs Temp 36.4 C 06/24/25 09:35 Pulse 79 06/24/25 09:35 Resp 18 06/24/25 09:35 BP 150/93 H 06/24/25 09:35 Pulse Ox 96 06/24/25 09:35 O2 Del Method Room Air 06/24/25 09:35 Allergies Allergy/AdvReac Type Severity Reaction Status Date / Time No Known Allergies Allergy Verified 06/24/25 09:48 Home Medications ?Medication ?Instructions ?Recorded ?Confirmed ?Type tamsulosin 0.4 mg capsule (Flomax) 0.4 mg PO BID 09/01/23 06/24/25 History ibuprofen 800 mg tablet 800 mg PO Q6H PRN pain #30 tabs 10/08/24 06/24/25 Rx amlodipine 10 mg tablet See Rx Instructions .Route 02/08/25 06/24/25 Rx .COMPLEX #90 tabs testosterone cypionate 200 mg/mL 120 mg (0.6 mL) IM WEEKLY #10 mL 04/04/25 06/14/25 Rx intramuscular oil cholecalciferol (vitamin D3) 125 5,000 unit PO 5XW 04/05/25 06/24/25 History mcg (5,000 unit) capsule rosuvastatin 20 mg tablet 20 mg PO QHS #90 tabs 04/08/25 06/24/25 Rx vibegron 75 mg tablet (Gemtesa) 75 mg PO DAILY 04/18/25 06/24/25 History syringe with needle 3 mL 23 x 1 #12 ea 04/22/25 05/17/25 Rx (BD Luer-Richard Syringe) losartan 100 mg tablet 100 mg PO DAILY #90 tabs 04/25/25 06/24/25 Rx sertraline 100 mg tablet See Rx Instructions .Route 04/25/25 06/24/25 Rx .COMPLEX #90 tabs finasteride 5 mg tablet 5 mg PO DAILY 05/17/25 06/24/25 History albuterol sulfate 90 mcg/actuation 2 puff inhalation QID PRN 05/25/25 06/14/25 Rx aerosol inhaler (Ventolin HFA) shortness of breath or wheezing #8.5 grams tadalafil 5 mg tablet 5 mg PO QPM 06/06/25 06/24/25 History hydrochlorothiazide 12.5 mg tablet See Rx Instructions .Route 06/17/25 06/24/25 Rx .COMPLEX #90 tabs Patient hx anesthesia problems: none Family hx anesthesia problems: none Results Review: All pre-operative results and documents have been reviewed as part of the pre-operative evaluation. 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 Contusion of left foot Cataract, right eye Essential hypertension Morbid obesity due to excess calories Erectile dysfunction Morbid obesity due to excess calories Osteoarthritis of thumbs, bilateral Encounter for monitoring testosterone replacement therapy Elevated PSA Obesity Elevated PSA measurement Hypogonadism in male Depression Surgical History Surgical History History of back surgery History of arthroscopy of knee 01/15/2021 Family History Family History Father Heart disease CAD Diabetes mellitus Sibling Acute myocardial infarction Pacemaker Unknown Depression Hypertension Social History Social History Social History: caffeine use Smoking status: Never smoker Alcohol intake: current Drinks per week: 1 Alcohol use details: once a month Substance use: never Substance use type: does not use Lack of Transportation: No Lack of Food: Never True Current Housing: I Have Housing Concerned About Future Housing: No Difficulty Paying Gas/Electric Bills: No Difficulty Paying for Meds: No Currently Unemployed: No Education: Trade/Vocational Certificate Difficulty w/ Childcare or Family Care: No Living arrangements: with family Additional living arrangements comments: S.O. Occupation/Education: occupation Additional occupation/education comments: [employer] Gender identity (if verbalized by the patient): Male Spiritual care concerns: No Anes - Eval Final PreProcedure Day of Procedure 06/24/25 10:24 Patient weight: morbidly obese Lungs: decreased breath sounds Airway: Mallampati scale class III Neurological: alert and oriented Last oral intake: >/= 8 hours ASA classification: III Emergent: no Anesthetic plan: proceed Anesthesia type and monitoring: general ETT and standard monitoring Results Review: All pre-operative results and documents have been reviewed as part of the pre-operative evaluation. Informed Consent: The patient's anesthetic plan and its attendant risks and benefits were discussed with the patient/family/POA. Questions were solicited and answers provided to the satisfaction of the patient/family/POA.
[2025-06-24] MEDS: ceFAZolin 3 GM/D5W 100 ML 100 ML IVPB (10:37)
[2025-06-24] MEDS: LIDO 1%/EPINEPHRINE 1:100,000 20 ML VIAL 30 ML INFILTRATE (11:10)
[2025-06-24] MEDS: OXYMETAZOLINE HCL 0.05% NAS 15 ML BTL (*BKC) 1 SPRAY NASAL (11:11)
[2025-06-24] MEDS: MUPIROCIN 2% OINT 22 GM TUBE 1 APPLIC EACH NARE (11:43)
--- NOTE | 2025-06-24 12:35 | P.OP_ITS ---
Procedure Note - Detailed Date of Procedure 06/24/25 Pre-op Diagnosis Nasal obstruction nasal congestion turbinate inferior hypertrophy septal deviation Post-op Diagnosis Same Procedure Performed 1. Endoscopic assisted septoplasty 2. Bilateral inferior turbinate reduction with outfracture Surgeon Negro Villalobos MD Anesthesia General Indications See above Findings Deviated septum high right greater than left severe inferior turbinate hypertrophy Description of Procedure Patient identified consent verified the preoperative holding area. Patient brought operating. Time-out performed. General anesthesia induced endotracheal tube secured airway. Patient prepped draped position procedure confirmed 2nd time-out performed. 0 degree endoscope utilized 15 cc 1% lidocaine with 100 parts epinephrine checked the bilateral nasal septum inferior turbinates [place] incision made left-sided left nasal septal flap elevated no tears osteotome utilized to cross over anterior to the deviation right nasal septal flap el evated 1 small 1 x 2 mm tear. Deviated septum removed Darlyn forceps Rudy Coleman forceps and osteotome. Cancellous bone blood up high this was packed with FloSeal bleeding stopped. Septum rinsed out with sterile warm saline suctioned out [place] incision closed with 4 interrupted 5 0 fast gut sutures. Turbinates scant anteriorly a 15 blade reduced in the submucosal plane using 2.9 mm turbinate blade outfractured FloSeal placed on the anterior portions well. This was a bilateral inferior turbinate reduction with outfracture. Patient tolerated the procedure well blood loss 15 cc. No active bleeding at the end of the case. Care the patient back to Anesthesiology. I performed all dictated portions of procedure. No complications. In to PACU. Estimated Blood Loss 15 Drains No Packing No Pathology None sent Complications No immediate complications Condition Stable Disposition PACU [facility] Billing Surgery - Charge Forward: Surgery Billing
[2025-06-24] MEDS: oxyCODONE HCL (*CRX) 5 MG TAB IR PO (13:07)
== END 2025-06-24 14:06 | disposition home or self-care (01) ==
PROVIDERS: PCP Internal Medicine; Visit Provider Otolaryngology
PROC: (CPT 30520; principal; 2025-06-24 11:30)
PROC: (CPT 30520; 2025-06-24 11:30)
DX: J34.2 Deviated nasal septum (principal); J34.89 Other specified disorders of nose and nasal sinuses; J34.3 Hypertrophy of nasal turbinates; I10 Essential (primary) hypertension; G89.29 Other chronic pain; M25.562 Pain in left knee; E29.1 Testicular hypofunction; Z79.890 Hormone replacement therapy
CPT/HCPCS: 30520; 30140; A9270; J0330; J0690; J1100; J2003; J2004; J2405; J2704; J7050; J7120